=== PATIENT | female | born 1965 | race Caucasian/White ===

== ENCOUNTER 2020-06-28 15:09 | Inpatient (IN) | payer OTHER ==
[~2020-06-28] VITALS: Ht 172.7 cm; Wt 61.7 kg
[2020-06-28 15:11] VITALS: BP 116/81
[2020-06-28 15:36] LABS: ABSOLUTE BASOPHILS 0.1 thou/uL (0.0-0.2); ABSOLUTE LYMPHOCYTES 1.5 thou/uL (0.8-5.3); ABSOLUTE MONOCYTES 0.4 thou/uL (0.0-1.2); ABSOLUTE NEUTROPHILS 9.1 thou/uL (1.6-8.1); BASOPHILS 1.2 %; EOSINOPHILS 0.2 %; HEMATOCRIT 27.4 % (37.0-47.0); HEMOGLOBIN 9.6 gm/dL (12.0-15.0); LYMPHOCYTES 13.7 %; MCH 39.8 pg (26.0-34.0); MCHC 35.1 g/dL (28.0-37.0); MCV 113.5 fL (80.0-100.0); MONOCYTES 3.2 %; MPV 7.6 fl. (7.2-11.1); NUCLEATED RBCS 0 /100WBC; PLATELET COUNT* 369 thou/uL (150-400); POLYS 81.7 %; RBC 2.41 mil/uL (4.20-5.00); RDW-CV 15.3 % (10.5-14.5); WBC 11.2 thou/uL (4.0-11.0)
[2020-06-28 15:49] LABS: URINE BILIRUBIN NEGATIVE (Negative); URINE BLOOD 3+ (Negative); URINE CLARITY CLEAR; URINE COLOR YELLOW; URINE GLUCOSE-RANDOM NEGATIVE (Negative); URINE KETONES NEGATIVE (Negative); URINE NITRITE-REFLEX NEGATIVE (Negative); URINE PROTEIN NEGATIVE (Negative); URINE UROBILINOGEN 0.2 E.U./dl (0.2-1.0)
[2020-06-28 15:49] LABS: ANION GAP 6 mmol/L (7-16); BUN 3 mg/dL (7-18); CALCIUM 7.7 mg/dL (8.5-10.1); CHLORIDE 92 mmol/L (98-107); CO2 41 mmol/L (21-32); CREATININE 0.6 mg/dL (0.6-1.3); GLUCOSE 133 mg/dL (70-99); SODIUM 139 mmol/L (136-145)
[2020-06-28 15:51] LABS: URINE LEUKOCYTES-REFLEX 3+ (Negative)
[2020-06-28 15:54] LABS: POTASSIUM 1.8 mmol/L (3.5-5.1)
[2020-06-28 16:03] LABS: ALBUMIN 3.1 g/dL (3.4-5.0); ALKALINE PHOSPHATASE 116 U/L (46-116); LIPASE 41 U/L (73-393); SGOT 373 U/L (15-37); SGPT 65 U/L (30-65); TOTAL BILIRUBIN 0.7 mg/dL (<0.1-1.0); TOTAL PROTEIN 6.1 g/dL (6.4-8.2)
[2020-06-28 16:04] LABS: BACTERIA-REFLEX >30 Many /HPF (None Seen)
[2020-06-28 16:06] LABS: CASTS None Seen /LPF (None Seen); CRYSTALS None Seen /LPF (None Seen); MUCUS None Seen strn/LPF (None Seen); SQUAMOUS >10 Many /LPF (0-3); URINE RBC 3-10 Few /HPF (0-2)
[2020-06-28 16:51] LABS: ANISOCYTOSIS 1+; MACROCYTES 2+; PLATELET ESTIMATE ADEQUATE
[2020-06-28 20:54] VITALS: BP 119/68
[2020-06-28 21:00] VITALS: BP 123/68
[2020-06-29] VITALS: BP 129/71; BP 29/71
[2020-06-29] MEDS ORDERED: ACETAMINOPHEN500 MG PO (02:44)
[2020-06-29 04:00] VITALS: BP 132/75
--- NOTE | 2020-06-29 07:41 | NUR ---
RECIEVED REPORT FROM DIANA GARCIA. PT TRASNFERRED TO RM 229. PT A&OX4. VSS. MEDICAL ASSISTANT PRN IN PLACE. ADMISSION HISTORY & PHYSICAL ASSESSMENT COMPLETED AND CHARTED. PT ORIENTED TO ROOM & CALL LIGHT. PT RECHECKED POTASSIUM 1.7-ELECTROLYTE PROTOCOL IN PLACE. PLACED IN SPECIAL CONTACT PRECAUTION FOR PENDING CDIFF. CALL LIGHT WITHIN REACH.
[2020-06-29 08:00] VITALS: BP 142/79
[2020-06-29 08:23] LABS: MCH 39.1 pg (26.0-34.0); MCHC 34.6 g/dL (28.0-37.0); RBC 1.76 mil/uL (4.20-5.00); RDW-CV 15.3 % (10.5-14.5); WBC 8.1 thou/uL (4.0-11.0)
[2020-06-29 08:31] LABS: CALCIUM 6.2 mg/dL (8.5-10.1); CREATININE 0.5 mg/dL (0.6-1.3)
[2020-06-29 08:35] LABS: HEMOGLOBIN 6.9 gm/dL (12.0-15.0)
[2020-06-29 08:36] LABS: HEMATOCRIT 19.9 % (37.0-47.0)
[2020-06-29 08:45] LABS: ALBUMIN 2.1 g/dL (3.4-5.0); MAGNESIUM 1.1 mg/dL (1.8-2.4); POTASSIUM 1.9 mmol/L (3.5-5.1); TOTAL BILIRUBIN 0.7 mg/dL (<0.1-1.0); TOTAL PROTEIN 4.4 g/dL (6.4-8.2)
--- NOTE | 2020-06-29 09:18 | NUR ---
CM SPOKE TO THE PT TO DISCUSS CM ASSESSMENT. PT A&O. PT NORMALLY INDEPENDENT WITH ADL'S. PT INFORMS THAT SHE HAS BEEN VERY WEAK RECENTLY. PT RESIDES AT HOME WITH SON AND HE ASSIST HER NEEDED. PT INFORMS THAT SHE USES A WALKER FOR MOBILITY. PT HAS 0 HX OF HH. PT HAS HX OF SNF AT [place]. CM WILL REMAIN AVAILABLE TO ASSIST AND FOLLOW NEEDED.
--- NOTE | 2020-06-29 09:58 | EKG ---
[place] [address] ELECTROCARDIOGRAM REPORT Name: GELY HERNDON Room: [address] ADM IN [facility].#: [id number] Admission: 06/28/20 Attend Phys: James Nielsen, Discharge: Date of : 67 Date of Service: 06/28/20 1550 Report #: [id number] THIS REPORT FOR: //name// [facility] ED Test Date: 2020-06-28 Test Time: 15:50:58 Pat Name: GELY HERNDON Department: Room: [facility] Gender: F X Ray Developer: OSMAR : 1965 Requested By: Mateusz Bautista Order Number: [id number] MD: Gomez Jolley Measurements Intervals [place] Rate: 93 P: 0 OR: 166 QRS: 67 QRSD: 82 T: 252 QT: 399 QTc: 497 Interpretive Statements Sinus rhythm Borderline repolarization abnormality prolonged QT interval No previous ECG available for comparison Electronically Signed On 06-29-2020 9:58:08 MANAGER ROUTE by Gomez Jolley [email or web address] <ELECTRONICALLY SIGNED> By: Gomez Jolley MD, [facility] 06/29/20 0958 1550 1550 Gomez Jolley MD, [facility] /EPI
[2020-06-29 11:54] VITALS: BP 147/71
[2020-06-29 14:23] VITALS: BP 156/83; BP 157/82; BP 158/85; BP 182/93
[2020-06-29 18:49] LABS: HEMATOCRIT 31.9 % (37.0-47.0); HEMOGLOBIN 10.6 gm/dL (12.0-15.0)
[2020-06-29 18:52] LABS: MAGNESIUM 2.9 mg/dL (1.8-2.4)
[2020-06-29 20:00] VITALS: BP 159/76
--- NOTE | 2020-06-29 20:15 | NUR ---
ASSUMED CARE OF PATIENT THIS AM AT 0730. PATIENT IS ALERT ORIENTED X 4. SHE APPEARS VERY WEAK AND STIFF. PATIENT HAD A LOW POTASSIUM AND A HGB OF 6.9. AND A MAGNESIUM OF 1.1. IUNIT OF BLOOD GIVEN. E-LTTE REPLACEMENT GIVEN. LABS REDRAWN THIS EVENING AND POTASSIUM REMAINS LOW AT 2.0. SUGAR GRINDER NOTIFIED. PATIENT ASSISTED WITH ADLS THROUGHOUT THE DAY. SHE IS VOIDING PER BEDPAN. NO STOOLS NOTED TODAY. TELE SHOWS SR WITH 1DAVB AND PACS. WILL CONTINUE TO MONITOR VS AND LABS.
[2020-06-30] VITALS: BP 137/76
[2020-06-30 04:00] VITALS: BP 144/71
[2020-06-30 04:38] LABS: HEMATOCRIT 24.8 % (37.0-47.0); MCH 36.5 pg (26.0-34.0); MPV 7.1 fl. (7.2-11.1); RBC 2.31 mil/uL (4.20-5.00); WBC 11.1 thou/uL (4.0-11.0)
[2020-06-30 05:26] LABS: ALBUMIN 2.1 g/dL (3.4-5.0); CALCIUM 6.8 mg/dL (8.5-10.1); CREATININE 0.5 mg/dL (0.6-1.3); MAGNESIUM 2.1 mg/dL (1.8-2.4); TOTAL BILIRUBIN 0.6 mg/dL (<0.1-1.0); TOTAL PROTEIN 4.5 g/dL (6.4-8.2)
[2020-06-30 05:29] LABS: POTASSIUM 2.4 mmol/L (3.5-5.1)
[2020-06-30 05:49] LABS: HEMOGLOBIN 8.4 gm/dL (12.0-15.0); MCV 107.5 fL (80.0-100.0)
--- NOTE | 2020-06-30 06:31 | NUR ---
ASSUMED CARE OF PT AFTER REPORT AT 1930. PT A&OX4. VSS. PHYSICAL ASSESSMENT COMPLETED AND CHARTED. PT ON RA. PT TRACING SR ON TELE. PT TURNED TO SIDES. POTASSIUM STILL LOW- ELECTROLYTE PROTOCOL IN PLACE. MAINTAINED ON SPECIAL CONTACT PRECAUTION - PENDING CDIFF. CALL LIGHT WITHIN REACH.
[2020-06-30 11:57] VITALS: BP 151/90
--- NOTE | 2020-06-30 15:01 | NUR ---
CM INFORMED DURING PRIME ROUNDING OF THE PLAN OF CARE FOR THE PT. PT REMAINS ON IV ABT'S. CULTURES PENDING. PT MAY NEED HH AT D/C. CM WILL REMAIN AVAILABLE TO ASSIST AND FOLLOW NEEDED.
--- NOTE | 2020-06-30 15:02 | NUR ---
CM INFORMED DURING PRIME ROUNDING OF THE PLAN OF CARE FOR THE PT. PT/OT EVALS AND FOLLOW-UP. LABS PENDING. PT MAY NEED HH AT D/C. CM WILL REMAIN AVAILABLE TO ASSIST AND FOLLOW NEEDED.
[2020-06-30 17:10] VITALS: BP 164/103
--- NOTE | 2020-06-30 19:02 | NUR ---
I ASSUMED CARE OF THE PATIENT AT 0700. SHE IS ALERT AND ORIENTED X4 AND IS UP WITH ASSIST OF 2. BED IS IN THE LOW LOCKED POSITION AND CALL LIGHT IS IN REACH. HOURLY ROUNDING IS COMPLETED AND PATIENT NEEDS ARE MET. PAIN IS MANAGED WITH PRN MEDS. SHE WAS UP WITH THERAPY TO THE CHAIR AND STAYED UP FOR MEALS. PATIENT CALLS OUT FREQUENTLY AND FORGETS THAT SHE IS ENCOURAGED TO STAY STRONG BY USING HER STRENGTH. A STOOL SAMPLE WAS COLLECTED AND SENT AND ISOLATION IS MAINTAINED FOR SPECIAL CONTACT PRECAUTIONS. WILL CONTINUE TO MONITOR.
[2020-06-30 20:00] VITALS: BP 129/86
[2020-07-01] VITALS: BP 144/96; BP 97/59
[2020-07-01 04:00] VITALS: BP 135/89
[2020-07-01 04:12] LABS: HEMATOCRIT 27.8 % (37.0-47.0); HEMOGLOBIN 9.5 gm/dL (12.0-15.0); MCH 37.2 pg (26.0-34.0); MCHC 34.3 g/dL (28.0-37.0); MCV 108.5 fL (80.0-100.0); MPV 7.2 fl. (7.2-11.1); RBC 2.56 mil/uL (4.20-5.00); RDW-CV 20.4 % (10.5-14.5); WBC 12.6 thou/uL (4.0-11.0)
[2020-07-01 04:48] LABS: ANION GAP 5 mmol/L (7-16); BUN 1 mg/dL (7-18); CALCIUM 7.5 mg/dL (8.5-10.1); CHLORIDE 103 mmol/L (98-107); CO2 32 mmol/L (21-32); CREATININE 0.6 mg/dL (0.6-1.3); GLUCOSE 87 mg/dL (70-99); MAGNESIUM 1.9 mg/dL (1.8-2.4); POTASSIUM 3.6 mmol/L (3.5-5.1); SODIUM 140 mmol/L (136-145)
--- NOTE | 2020-07-01 06:46 | NUR ---
ASSUMED CARE OF PT AFTER REPORT AT 1930. PT A&OX4. VSS. PHYSICAL ASSESSMENT COMPLETED AND CHARTED. PT ON RA. PT TRACING SR/ST ON TELE. PT UP WITH 1 ASSIST TO RECLIINER/BSC. PT COMPLAINED OF GENERALIZED BODY PAIN-MED GIVEN PER MAR. MAINTAINED ON SPECIAL CONTACT PRECAUTION FOR CDIFF. FALL PRECAUTIONS IN PLACE. CALL LIGHT WITHIN REACH.
[2020-07-01 08:00] VITALS: BP 137/85
--- NOTE | 2020-07-01 10:41 | NUR ---
RECIEVED REPORT AROUND 729. ASSUMED CARE. HEART MONITOR ATTACHED AT ST. IV INTACT LEFT FOREARM. PT LYING IN BED. C.DIFF POSITIVE. ISOLATION PRECAUTIONS INTACT. MEDS GIVEN PER MAR. REPORTED GENERALIZED PAIN OF "6" OUT OF 10. CALL LIGHT WITHIN REACH. WILL CONTINUE TO MONITOTR.
[2020-07-01 16:49] VITALS: BP 133/92
[2020-07-01 19:08] LABS: ANA INTERPRETATION Negative (())
--- NOTE | 2020-07-01 19:43 | NUR ---
NO NEW CHANGES. MED/SURG STATUS. IV INTACT. PT IN CHAIR. ISOLATION PRECAUTIONS INTACT. MEDS GIVEN PER SEP. HOURLY ROUNDING PERFORMED. NO OTHER PAIN REPORTED THROUGHT OUT SHIFT. SON VISITED THIS SHIFT. CALL LIGHT WITHIN REACH. REPORT GIVEN TO LEGAL RESEARCHER. LEGAL RESEARCHER ASSUMED CARE.
[2020-07-01 20:00] VITALS: BP 117/77
--- NOTE | 2020-07-02 03:06 | NUR ---
ASSUMED CARE OF PATIENT AT 1930. PATIENT CONTINUES ON ISOLATION FOR C-DIFF. ASSESSMENT CHARTED. PATIENT DENIES PAIN HOWEVER STATES SHE ACHES ALL OVER. PATIENT DECLINED INTERVENTIONS.
[2020-07-02 04:54] LABS: CALCIUM 7.5 mg/dL (8.5-10.1); CREATININE 0.5 mg/dL (0.6-1.3); MAGNESIUM 1.8 mg/dL (1.8-2.4); POTASSIUM 3.3 mmol/L (3.5-5.1)
[2020-07-02 07:45] VITALS: BP 123/81
--- NOTE | 2020-07-02 09:18 | NUR ---
RECIEVED REPORT AROUND 0715. ASSUMED CARE. PT LYING IN BED THIS AM. GOT UP TO BSC TO VOID. THEN BACK PT BED. PT UP STAND BY ASSIST. PT STATED "NO" TO ANY PAIN. MEDS GIVEN PER SEP. MED/SURG STATUS. IV INTACT LEFT FOREARM 1/2 NS@50 RUNNING. CALL LIGHT WITHIN REACH. WILL CONTINUE TO MONITOR.
[2020-07-02 11:28] VITALS: BP 127/84
[2020-07-02 16:31] VITALS: BP 125/78
--- NOTE | 2020-07-02 18:58 | NUR ---
NO NEW CHANGES. PT LYING IN BED. MEDS GIVEN PER MAR. HOURLY ROUNDING PERFORMED. NO PAIN REPORTED. PT STATED "NO" ISOLATION PRECAUTIONS INTACT. IV INTACT. MED/SURG STATUS. CALL LIGHT WITHIN REACH. WILL CONTINUE TO MONITOR.
[2020-07-02 20:00] VITALS: BP 126/77
[2020-07-03] VITALS: BP 120/77
[2020-07-03 02:35] VITALS: BP 132/78
[2020-07-03 02:45] VITALS: BP 123/74
--- NOTE | 2020-07-03 04:16 | NUR ---
ASSUMED PT CARE AT APPROX 1930. PT IS AWAKE AND ORIENTED X4. PT IS NOT IN RESPIRATORY DISTRESS, NO DESATURATIONS NOTED ON ROOM AIR. NO COMPLAINTS OF PAIN AT THIS TIME. ZOFRAN GIVEN PER SEP FOR NAUSEA, WITH RELIEF. NO OTHER CHANGES THIS SHIFT. CALL LIGHT WITHIN REACH. HOURLY ROUNDING DONE FOR PT SAFETY. CALL LIGHT WITHIN REACH. HIGH FALL PRECAUTIONS IN PLACE.
[2020-07-03 08:00] VITALS: BP 113/66
[2020-07-03 11:00] VITALS: BP 113/66
[2020-07-03 14:32] LABS: ABSOLUTE EOSINOPHILS 0.1 thou/uL (0.0-0.7); ABSOLUTE LYMPHOCYTES 1.9 thou/uL (0.8-5.3); ABSOLUTE MONOCYTES 0.5 thou/uL (0.0-1.2); ABSOLUTE NEUTROPHILS 5.9 thou/uL (1.6-8.1); BASOPHILS 0.2 %; EOSINOPHILS 0.9 %; HEMATOCRIT 28.2 % (37.0-47.0); HEMOGLOBIN 9.4 gm/dL (12.0-15.0); LYMPHOCYTES 22.7 %; MCH 37.1 pg (26.0-34.0); MCHC 33.4 g/dL (28.0-37.0); MCV 111.1 fL (80.0-100.0); MONOCYTES 5.9 %; MPV 7.1 fl. (7.2-11.1); NUCLEATED RBCS 0 /100WBC; PLATELET COUNT* 453 thou/uL (150-400); POLYS 70.3 %; RBC 2.54 mil/uL (4.20-5.00); RDW-CV 20.1 % (10.5-14.5); WBC 8.5 thou/uL (4.0-11.0)
[2020-07-03 14:57] LABS: MACROCYTES 2+; PLATELET ESTIMATE INCREASED
[2020-07-03 14:58] LABS: ANISOCYTOSIS 2+
[2020-07-03 15:03] LABS: ALBUMIN 2.3 g/dL (3.4-5.0); CALCIUM 7.5 mg/dL (8.5-10.1); CREATININE 0.6 mg/dL (0.6-1.3); MAGNESIUM 1.8 mg/dL (1.8-2.4); POTASSIUM 3.7 mmol/L (3.5-5.1); TOTAL BILIRUBIN 0.2 mg/dL (<0.1-1.0); TOTAL PROTEIN 5.4 g/dL (6.4-8.2)
[2020-07-03] MEDS ORDERED: VANCOMYCIN HCL125 MG PO (15:36)
[2020-07-03] MEDS ORDERED: VITAMIN D325 MCG PO (15:36)
[2020-07-03 16:14] VITALS: BP 113/66
--- NOTE | 2020-07-03 18:52 | NUR ---
RECEIVED REPORT. ASSUMED CARE OF PT AROUND 0730. PT A&O X4. AM ASSESSMENT AND VITALS COMPLETED CHARTED. MEDS PER EMAR. SON AT BEDSIDE THIS AFTERNOON. ISOLATION MAINTAINED. PT UP TO BEDSIDE COMMODE AD ELENA TO VOID - MUCH STRONGER TODAY, NO LONGER A FALL RISK. DENIED DIZZINESS. PT WITH SEVERAL STOOLS THIS SHIFT, STARTING TO FORM UP SOME NOW. DC ORDERS RECEIVED. PT AWARE TO CENTER DIRECTOR LEAD TEACHER MEDS FROM PHARMACY. PT AWARE OF FOLLOW UP APPOINTMENTS NEEDED. IV REMOVED. ALL BELONGINGS GATHERED AND READY TO LEAVE WITH THE PT. PT FINISHING BAG OV IV MAG AND THEN WILL BE READY TO GO. SON WILL BE HERE AROUND 1900. PT CURRENTLY RESTING IN BED. LOW FALL RISK PRECAUTIONS IN PLACE. CALL LIGHT IS WITHIN REACH. HOURLY ROUNDING PERFORMED.
== END 2020-07-03 19:35 | disposition home or self-care (01) | DRG 372 ==
LOC: M.ERS 15:09 → M.2W 16:40 → M.TBA-ER 16:40 → M.2W 21:00
PROVIDERS: Family Medicine; Internal Medicine; ADMIT Internal Medicine; ATTEND Internal Medicine
PROC: 30233N1 Transfusion of Nonautologous Red Blood Cells into Peripheral Vein, Percutaneous Approach (ICD-10-PCS; principal; 2020-06-29)
DX: A04.71 Enterocolitis due to Clostridium difficile, recurrent (principal); E44.0 Moderate protein-calorie malnutrition; M62.82 Rhabdomyolysis; E87.6 Hypokalemia; N30.91 Cystitis, unspecified with hematuria; D64.9 Anemia, unspecified; E53.8 Deficiency of other specified B group vitamins; F17.210 Nicotine dependence, cigarettes, uncomplicated; F44.4 Conversion disorder with motor symptom or deficit; M35.3 Polymyalgia rheumatica; E83.119 Hemochromatosis, unspecified; E83.42 Hypomagnesemia; E86.0 Dehydration; Z20.828 Contact with and (suspected) exposure to other viral communicable diseases; Z68.20 Body mass index [BMI] 20.0-20.9, adult; Z90.710 Acquired absence of both cervix and uterus

== ENCOUNTER 2020-07-31 14:41 | Emergency (ER) | payer OTHER ==
[~2020-07-31] VITALS: Ht 160 cm; Wt 59.0 kg
--- NOTE | ~2020-07-31 | EMS ---
[place] [address] EMS Patient Care Report Name: GELY HERNDON [id number] Admission: 07/31/20 Attend Phys: Discharge: 07/31/20 Date of : 67 Report #: [id number] THIS REPORT FOR: //name// Report Transmitted: 08/01/2020 12:15 EMS Care Summary [facility] Incident [id number] @ 07/31/2020 13:33 Incident Location [facility] [place] [address] Patient GELY HERNDON Female, 54 Years 1965 Patient Address [address] [place] [address] Patient History None Reported, Patient Allergies No known allergies, Patient Medications Ibuprofen, Tylenol, Bentyl, Vancomycin, Chief Complaint Seizure Disposition Transported No Lights/[place] Dispatch Reason Convulsions/Seizure Transported To [facility] Narrative Dispatch: [facility] was dispatched for a female patient who experienced a Seizure. Patient is currently asleep and breathing in her chair. Med 1 copied tones and went en route emergent. [place] [id number] EMS Patient Care Report Name: GELY HERNDON Room: [facility]#: [id number] Admission: 07/31/20 Attend Phys: Discharge: 07/31/20 Date of : 67 Report #: [id number] Chief Complaint: Med 1 arrived on scene to find the patient slumped over in her chair. Patient is alert to painful and verbal stimuli. Patient does not appear to be in any distress or discomfort. Patient is uncooperative while attempting to assess GCS. Patient's son states she has "drank alcohol" and "took her pills." History of present illness/PERLA: Patient's son states she has a history of seizures, but then states that she does not. The son states "her arms were shaking and her legs for an unknown time." Patient was sitting in her living room chair when her son witnessed the seizure. Assessment: Airway: Clear, patent, and self maintained. Breathing: Clear, and equal bilaterally. Non labored. Circulation: Skin is pink, warm, and dry. Strong radial pulses. Disability: A&OX4, GCS 15. Exposures: No life threats were found. See "assessments" tab for further. Reason for ambulance: Patient is experiencing a seizure, requesting EMS treatment and transport. Treatments: ALS assessment. 12 lead EKG showing sinus tachycardia. 20G IV attempt, unsuccessful. Vitals monitored throughout transport. See "flowchart" for further. Summary: With the assistance of EMS, the patient was placed onto the cot, secured in place, and placed into the ambulance for transport. A 12 lead EKG was performed. Med 1 went en route non emergent to [place]. A 20G IV was attempted, but unsuccessful. The patient's overall condition remained the same throughout transport. Radio report was given and no further questions or orders were received. Med 1 arrived at destination and the patient was taken to room 4 in the ED. The patient was sheet transferred onto the bed. Report was given and signatures and paperwork were received. Med 1 returned back in service. Initial Vitals @14:17P: 102,BP: 126/77,[place] Suspected: false @14:29P: 99,SpO2: 100, @14:24P: 107,SpO2: 100,[place] Suspected: false @14:13P: 102,[place] Suspected: false @14:34P: 105,SpO2: 100, @14:04BP: 128/77,SpO2: 97,[place] Suspected: false @14:22R: 18,GCS: 14,Glucose: 123, @14:39P: 106,BP: 95/76,[place] Suspected: [place] [address] EMS Patient Care Report Name: KATRINAGELY Room: [facility]#: [id number] Admission: 07/31/20 Attend Phys: Discharge: 07/31/20 Date of : 67 Report #: [id number] @13:55MENTAL:Person Oriented,SKIN:HEENT:LUNG SOUNDS:ABDOMEN:PELVIS//GI:EXTREMITIES:Capillary Refill: Right Upper: < 2 Sec,PULSE:Radial: 2+ Normal,NEURO:@14:06MENTAL:Person Oriented,SKIN:HEENT:LUNG SOUNDS:ABDOMEN:PELVIS//GI:EXTREMITIES:Capillary Refill: Right Upper: < 2 Sec,PULSE:Radial: 2+ Normal,NEURO: Impression Seizures Procedures @14:12ALS AssessmentResponse: UnchangedSucceeded@14:32Saline Lock 0cc (20 ga) Site: Hand-RightResponse: UnchangedFailed@14:1312-Lead ECGResponse: UnchangedSucceeded@14:1712-Lead ECGResponse: UnchangedSucceeded Timeline 13:33,Call Received 13:33,Dispatched 13:34,En Route 13:53,On Scene 13:54,At Patient 14:04,BP: 128/77 M,PULSE: ,RR: R,SPO2: 97 Ox,ETCO2: ,BG: ,PAIN: ,GCS: , 14:04,Depart Scene 14:12,ALS Assessment,Response: UnchangedSucceeded, 14:13,12-Lead ECG,Response: UnchangedSucceeded, 14:13,BP: / M,PULSE: 102,RR: R,SPO2: Ox,ETCO2: ,BG: ,PAIN: ,GCS: , 14:17,12-Lead ECG,Response: UnchangedSucceeded, 14:17,BP: 126/77 M,PULSE: 102,RR: R,SPO2: Ox,ETCO2: ,BG: ,PAIN: ,GCS: , 14:22,BP: / M,PULSE: ,RR: 18 R,SPO2: Ox,ETCO2: ,B,PAIN: ,GCS: 14, 14:24,BP: / M,PULSE: 107,RR: R,SPO2: 100 Ox,ETCO2: ,BG: ,PAIN: ,GCS: , 14:29,BP: / M,PULSE: 99,RR: R,SPO2: 100 Ox,ETCO2: ,BG: ,PAIN: ,GCS: , 14:32,Saline Lock 0cc 20 ga Site: Hand-Right,Response: UnchangedFailed, 14:34,BP: / M,PULSE: 105,RR: R,SPO2: 100 Ox,ETCO2: ,BG: ,PAIN: ,GCS: , 14:38,At Destination 14:39,BP: 95/76 M,PULSE: 106,RR: R,SPO2: Ox,ETCO2: ,BG: ,PAIN: ,GCS: , 15:20,Call Closed Disclaimer v1.1 Copyright 2020 [employer] This EMS Care Summary contains data elements from the applicable legal record (which may be displayed differently). It is designed to provide pertinent information for the following purposes: continuity of care, clinical quality, and state data reporting. The complete legal record is available to ED staff and administrators of the receiving hospital in ES's Patient Tracker. All data is provided "as is."
[~2020-07-31 14:41] MED LIST: ACETAMINOPHEN500 MG PO; VANCOMYCIN HCL125 MG PO; VITAMIN D325 MCG PO
[2020-07-31 14:50] VITALS: BP 137/73
[2020-07-31 15:15] LABS: ABSOLUTE LYMPHOCYTES 0.8 thou/uL (0.8-5.3); ABSOLUTE MONOCYTES 0.5 thou/uL (0.0-1.2); ABSOLUTE NEUTROPHILS 3.9 thou/uL (1.6-8.1); BASOPHILS 0.2 %; HEMATOCRIT 31.5 % (37.0-47.0); HEMOGLOBIN 11.2 gm/dL (12.0-15.0); LYMPHOCYTES 16.2 %; MCHC 35.6 g/dL (28.0-37.0); MCV 98.5 fL (80.0-100.0); MONOCYTES 8.9 %; MPV 9.6 fl. (7.2-11.1); NUCLEATED RBCS 0 /100WBC; PLATELET COUNT* 52 thou/uL (150-400); POLYS 74.7 %; RDW-CV 18.6 % (10.5-14.5); WBC 5.2 thou/uL (4.0-11.0)
[2020-07-31 15:20] LABS: CALCIUM 7.8 mg/dL (8.5-10.1); CREATININE 0.8 mg/dL (0.6-1.3)
[2020-07-31 15:21] LABS: POTASSIUM 2.2 mmol/L (3.5-5.1)
[2020-07-31 15:24] LABS: ALBUMIN 3.1 g/dL (3.4-5.0); TOTAL BILIRUBIN 0.5 mg/dL (<0.1-1.0); TOTAL PROTEIN 6.4 g/dL (6.4-8.2)
[2020-07-31 15:46] LABS: AMP/METHAMP Negative (Negative); BARBITURATES Negative (Negative); BENZODIAZEPINES Negative (Negative); COCAINE Negative (Negative); METHADONE Negative (Negative); OPIATES Negative (Negative); PCP Negative (Negative); THC Negative (Negative)
[2020-07-31 16:20] LABS: URINE BILIRUBIN NEGATIVE (Negative); URINE BLOOD TRACE (Negative); URINE COLOR YELLOW; URINE GLUCOSE-RANDOM NEGATIVE (Negative); URINE KETONES NEGATIVE (Negative); URINE NITRITE-REFLEX NEGATIVE (Negative); URINE PROTEIN NEGATIVE (Negative); URINE SPECIFIC GRAVITY <= 1.005 (1.005-1.030); URINE UROBILINOGEN 0.2 E.U./dl (0.2-1.0)
[2020-07-31 16:21] LABS: URINE CLARITY HAZY; URINE LEUKOCYTES-REFLEX 2+ (Negative)
[2020-07-31 16:27] LABS: SQUAMOUS 0-3 Few /LPF (0-3)
[2020-07-31 16:28] LABS: INR 1.1; PROTIME 11.8 Seconds (9.20-11.50)
[2020-07-31 16:28] LABS: BACTERIA-REFLEX >30 Many /HPF (None Seen); CASTS None Seen /LPF (None Seen); CRYSTALS None Seen /LPF (None Seen); URINE RBC 0-2 Rare /HPF (0-2); URINE WBC-REFLEX 6-15 Few /HPF (0-5)
[2020-07-31 18:42] LABS: BE 6.8 mmol/L (-2 to +3); PCO2 33.8 mmHg (35.0-45.0); pH 7.555 (7.340-7.450)
[2020-07-31 18:46] LABS: PO2 141.8 mmHg (75.0-100.0)
[2020-07-31 18:51] LABS: CSF GLUCOSE 60 mg/dl (40-70); CSF PROTEIN 33.7 mg/dl (15-45)
[2020-07-31 19:14] LABS: CSF CLARITY CLEAR; CSF COLOR COLORLESS; CSF RBC 0 /mm3; CSF WBC 0 /mm3 (0-10); VOLUME 8 ml
[2020-07-31 19:28] LABS: CALCIUM 8.5 mg/dL (8.5-10.1); CREATININE 0.7 mg/dL (0.6-1.3)
[2020-07-31 19:29] LABS: POTASSIUM 1.8 mmol/L (3.5-5.1)
[2020-07-31 19:57] VITALS: BP 143/94
--- NOTE | 2020-08-01 10:13 | EKG ---
[place] [address] ELECTROCARDIOGRAM REPORT Name: GELY HERNDON Room: [facility]#: [id number] Admission: 07/31/20 Attend Phys: Discharge: 07/31/20 Date of : 67 Date of Service: 07/31/20 1608 Report #: [id number] THIS REPORT FOR: //name// [facility] ED Test Date: 2020-07-31 Test Time: 16:08:43 Pat Name: GELY HERNDON Department: Room: [facility] Gender: F Internet Marketing Intern: : 1965 Requested By: Richard Galvez Order Number: [id number] MD: Yang Powell Measurements Intervals [place] Rate: 101 P: -47 VA: 175 QRS: 70 QRSD: 122 T: 124 QT: 470 QTc: 610 Interpretive Statements Sinus rhythm Nonspecific intraventricular conduction delay QT prolongation Nonspecific repol abnormality, diffuse leads Compared to ECG 06/28/2020 15:50:58 Intraventricular conduction delay now present Electronically Signed On 08-01-2020 10:13:09 TURNTABLE WORKER by Yang Powell [email or web address] <ELECTRONICALLY SIGNED> By: Yang Powell MD, [facility] 08/01/20 1013 1608 1608 Yang Powell MD, [facility] /EPI
== END 2020-07-31 19:58 | disposition short-term general hospital (02) ==
LOC: M.ERS 14:41 → M.TBA-ER 16:17 → M.ERS 16:17
PROVIDERS: Emergency Medicine; Internal Medicine
DX: G93.40 Encephalopathy, unspecified (principal); E87.6 Hypokalemia; Z90.710 Acquired absence of both cervix and uterus; Z79.2 Long term (current) use of antibiotics; Z79.899 Other long term (current) drug therapy; Z20.828 Contact with and (suspected) exposure to other viral communicable diseases

== ENCOUNTER 2021-02-15 16:05 | Inpatient (IN) | payer OTHER ==
[~2021-02-15] VITALS: Ht 170.2 cm; Wt 50.5 kg
--- NOTE | ~2021-02-15 | CON ---
[address] [address] CONSULTATION Name: KATRINAGELY Room: [address] IN M.R.#: [id number] Admission: 02/15/21 Attend Phys: Shiraz Russ MD Discharge: Date of : 67 Report #: [id number] THIS REPORT FOR: cc: Cl Street Ahmad W. DO Khosla, Parveen K. MD ~ DATE OF CONSULTATION: 03/13/2021 HISTORY OF PRESENT ILLNESS: This is a 55-year-old female patient who is extremely complicated. She has a large record in the computer and I talked to the nurse looking after this patient. There is a friend here in the room. She is unable to provide any history at all. Records indicate that she came with profound hypotension. It was presumed that she had a septic shock, but I reviewed the notes from ID and they are not sure about that diagnosis and therefore so far that shock has been unexplained. The record also indicate that this patient has a history of multiple C. difficile infection. History also indicate that when she came in, she provided a history she was drinking alcohol. According to the nurse, she is becoming better, but she is still not where it was before. I called Dr. Palm and discussed the patient with him. The patient is presently on BiPAP. I am not able to talk to her, but she does follow commands. When she came in, she was admitted with a fall and that was attributed to her hypotension. She was having some compression fractures, both in thoracic and lumbar area, which was a few months old. They were unchanged from the last CT scan. She also has a problem with alcohol. She has a liver abnormality. She just has numerous medical issues. PAST MEDICAL HISTORY: Positive for C. difficile infection. FAMILY HISTORY: Unremarkable. SOCIAL HISTORY: She does have a history of drinking alcohol. PHYSICAL EXAMINATION: Limited. She was able to open her eyes and she followed commands sometime. She moved upper extremity. To some extent, she moved lower extremity also. I cannot tell about the plantar. The movement in the lower extremity was pretty minimum and it was about 1-2/5; where in the upper extremities she has 3/5. She was much weaker on the left leg than the right leg. She did dorsiflexion and plantar flexion, but with great difficulty. I tried to do the position sense. The rest of the examination, I could not carry out. I could not elicit any reflexes in the lower extremities. She did not understand the instruction for cerebellar sign. There does not appear to be meningeal sign and of note is that this patient had a spinal tap and that was mostly unremarkable. LABORATORY DATA: She did have a CT scan of the head on admission, [place] [address] CONSULTATION Name: KATRINAGELY Room: [address] IN [facility]#: [id number] Admission: 02/15/21 Attend Phys: Shiraz Russ MD Discharge: Date of : 67 Report #: [id number] not show any acute abnormality. IMPRESSION: 1. A complicated case, which most likely occurred because of hypoperfusion secondary to hypotension as well as metabolic encephalopathy caused by numerous other problems. 2. 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 3. I cannot exclude the possibility of spine problem and I am not sure how to do the testing in this patient to even do that. RECOMMENDATIONS: I discussed with Dr. Palm. We will go ahead and do a CT on her, but she may need an MRI of the brain and even spine whenever she is able to cooperate with that, especially one of the notes indicate that she does have a history of atrial fibrillation. I will suggest giving her thiamine and I am going to give her IV today. I spent more than 50 minutes of time taking care of this patient today and that included reviewing her imaging study as well as extensive record and coordinating her care. Thank you very much for this referral. By: 1433 2105Milo Currie MD /isela
--- NOTE | ~2021-02-15 | PROC ---
[address] [address] PROCEDURE REPORT Name: GELY HERNDON Room: [address] ADM IN M.R.#: [id number] Admission: 02/15/21 Attend Phys: Shiraz Russ MD Discharge: Date of : 67 Report #: [id number] THIS REPORT FOR: cc: Cl Street Ahmad W. DO [facility],Medical Records Staff ~ For GI report, please see the Provation report in Perceptive 7 content. By: 1333Medical Records Staff SEBAS /ROBERTO
[2021-02-15 16:15] VITALS: BP 74/59
[2021-02-15 17:43] LABS: HEMATOCRIT 29.2 % (37.0-47.0); HEMOGLOBIN 10.3 gm/dL (12.0-15.0); MCH 36.9 pg (26.0-34.0); MCHC 35.4 g/dL (28.0-37.0); MCV 104.3 fL (80.0-100.0); MPV 8.9 fl. (7.2-11.1); NUCLEATED RBCS 0 /100WBC; PLATELET COUNT* 163 thou/uL (150-400); WBC 6.8 thou/uL (4.0-11.0)
[2021-02-15 17:48] LABS: CALCIUM 6.8 mg/dL (8.5-10.1); CREATININE 1.2 mg/dL (0.6-1.3)
[2021-02-15 17:50] LABS: POTASSIUM 2.6 mmol/L (3.5-5.1)
[2021-02-15 18:03] LABS: ALBUMIN 1.3 g/dL (3.4-5.0); TOTAL BILIRUBIN 2.1 mg/dL (<0.1-1.0); TOTAL PROTEIN 5.2 g/dL (6.4-8.2)
[2021-02-15 18:25] LABS: ABSOLUTE EOSINOPHILS 0.1 thou/uL (0.0-0.7); ABSOLUTE LYMPHOCYTES 1.7 thou/uL (0.8-5.3); ABSOLUTE MONOCYTES 0.3 thou/uL (0.0-1.2); ABSOLUTE NEUTROPHILS 4.7 thou/uL (1.6-8.1)
[2021-02-15 18:26] LABS: ANISOCYTOSIS 1+
[2021-02-15 18:27] LABS: MACROCYTES Occasional; PLATELET ESTIMATE ADEQUATE
[2021-02-15 21:13] LABS: BE 20.7 mmol/L (-2 to +3); PCO2 VENOUS 42.6 mmHg (41.0-51.0); PO2 VENOUS 138.6 mmHg (35.0-45.0)
[2021-02-15 21:25] LABS: ANION GAP < 0 mmol/L (7-16); BUN 6 mg/dL (7-18); CALCIUM 6.3 mg/dL (8.5-10.1); CHLORIDE 84 mmol/L (98-107); CO2 42 mmol/L (21-32); CREATININE 0.9 mg/dL (0.6-1.3); GLUCOSE 65 mg/dL (70-99); SODIUM 125 mmol/L (136-145)
[2021-02-15 21:27] LABS: POTASSIUM 1.6 mmol/L (3.5-5.1)
[2021-02-15 22:00] VITALS: BP 92/58
[2021-02-16] VITALS (24 sets, daily range): BP systolic 82–166; BP diastolic 35–146
[2021-02-16 04:00] LABS: ABSOLUTE BASOPHILS 0.1 thou/uL (0.0-0.2); ABSOLUTE EOSINOPHILS 0.1 thou/uL (0.0-0.7); ABSOLUTE LYMPHOCYTES 2.3 thou/uL (0.8-5.3); ABSOLUTE MONOCYTES 0.2 thou/uL (0.0-1.2); ABSOLUTE NEUTROPHILS 3.2 thou/uL (1.6-8.1); BASOPHILS 1.1 %; EOSINOPHILS 2.5 %; HEMATOCRIT 21.8 % (37.0-47.0); LYMPHOCYTES 39.1 %; MCH 36.8 pg (26.0-34.0); MCHC 35.4 g/dL (28.0-37.0); MCV 103.8 fL (80.0-100.0); MONOCYTES 4.1 %; MPV 7.8 fl. (7.2-11.1); NUCLEATED RBCS 0 /100WBC; PLATELET COUNT* 166 thou/uL (150-400); POLYS 53.2 %
[2021-02-16 04:33] LABS: PREALBUMIN 7.5 mg/dL (18.0-35.7)
[2021-02-16 05:12] LABS: HEMOGLOBIN 7.7 gm/dL (12.0-15.0)
[2021-02-16 06:11] LABS: ALBUMIN 1.5 g/dL (3.4-5.0); CREATININE 0.8 mg/dL (0.6-1.3); TOTAL PROTEIN 4.1 g/dL (6.4-8.2)
[2021-02-16 06:13] LABS: POTASSIUM 1.6 mmol/L (3.5-5.1)
[2021-02-16 10:20] LABS: URINE BILIRUBIN NEGATIVE (Negative); URINE BLOOD NEGATIVE (Negative); URINE CLARITY CLEAR; URINE COLOR YELLOW; URINE GLUCOSE-RANDOM NEGATIVE (Negative); URINE KETONES NEGATIVE (Negative); URINE LEUKOCYTES-REFLEX TRACE (Negative); URINE NITRITE-REFLEX NEGATIVE (Negative); URINE PROTEIN NEGATIVE (Negative); URINE SPECIFIC GRAVITY <= 1.005 (1.005-1.030)
[2021-02-16 10:28] LABS: AMP/METHAMP Negative (Negative); BACTERIA-REFLEX 1-9 Few /HPF (None Seen); BARBITURATES Negative (Negative); BENZODIAZEPINES Negative (Negative); CASTS None Seen /LPF (None Seen); COCAINE Negative (Negative); CRYSTALS None Seen /LPF (None Seen); METHADONE Negative (Negative); MUCUS None Seen strn/LPF (None Seen); OPIATES Negative (Negative); PCP Negative (Negative); SQUAMOUS 4-10 Moderate /LPF (0-3); THC Negative (Negative); URINE RBC 3-10 Few /HPF (0-2); URINE WBC-REFLEX 0-5 Rare /HPF (0-5)
--- NOTE | 2021-02-16 12:58 | EKG ---
[place] [address] ELECTROCARDIOGRAM REPORT Name: GELY HERNDON Room: [place] [address] ADM IN [facility]#: [id number] Admission: 02/15/21 Attend Phys: Shiraz Russ, Discharge: Date of : 67 Date of Service: 02/15/21 1708 Report #: [id number] THIS REPORT FOR: //name// [facility] ED Test Date: 2021-02-15 Test Time: 17:08:25 Pat Name: GELY HERNDON Department: Room: [facility] Gender: F Rehabilitation Assistant: TDS : 1965 Requested By: Chu Mcknight Order Number: [id number] MD: Yang Powell Measurements Intervals [place] Rate: 94 P: 0 LA: 51 QRS: 73 QRSD: 86 T: 231 QT: 433 QTc: 542 Interpretive Statements Sinus rhythm Low voltage, precordial leads Abnormal T, consider ischemia, diffuse leads Prolonged QT interval Compared to ECG 07/31/2020 16:08:43 Low QRS voltage now present Possible ischemia persists Prolonged QT interval persists Intraventricular conduction delay no longer present Early repolarization no longer present Electronically Signed On 02-16-2021 12:58:21 CDT by Yang Powell [email or web address] <ELECTRONICALLY SIGNED> By: Yang Powell MD, [facility] 02/16/21 1258 07 07 Yang Powell MD, [facility] /EPI
--- NOTE | 2021-02-16 14:19 | NUR ---
discussed the consult for kypho with Dr. Adams and she wanted to get MRI. Now discussed with RN that is taking care of patient and have a little more information regardng patient stability. Patient also has possible UTI and is metabolically unstable as she has had large amounts of stool multiple times a day. Patient would need to get better clinically prior to MRI and even addressing the proposed kyphoplasty.
--- NOTE | 2021-02-16 16:17 | NUR ---
RECTAL TUBE PLACED ON PT, 45 ML WASTER INFLATED INTO BALLOON. PT TOLERATED PROCEDURE WELL. LESLIE CARE DONE WITH BARRIER CREAM APPLIED
[2021-02-16 16:58] LABS: ABSOLUTE BASOPHILS 0.1 thou/uL (0.0-0.2); ABSOLUTE EOSINOPHILS 0.1 thou/uL (0.0-0.7); ABSOLUTE LYMPHOCYTES 1.8 thou/uL (0.8-5.3); ABSOLUTE MONOCYTES 0.3 thou/uL (0.0-1.2); ABSOLUTE NEUTROPHILS 3.5 thou/uL (1.6-8.1); EOSINOPHILS 1.7 %; HEMATOCRIT 22.4 % (37.0-47.0); HEMOGLOBIN 7.7 gm/dL (12.0-15.0); LYMPHOCYTES 31.7 %; MCH 35.9 pg (26.0-34.0); MCHC 34.3 g/dL (28.0-37.0); MCV 104.6 fL (80.0-100.0); MONOCYTES 4.8 %; MPV 7.9 fl. (7.2-11.1); NUCLEATED RBCS 0 /100WBC; PLATELET COUNT* 182 thou/uL (150-400); POLYS 60.8 %; RBC 2.14 mil/uL (4.20-5.00); RDW-CV 15.7 % (10.5-14.5); WBC 5.7 thou/uL (4.0-11.0)
[2021-02-16 17:04] LABS: CALCIUM 6.4 mg/dL (8.5-10.1); CREATININE 0.8 mg/dL (0.6-1.3); MAGNESIUM 1.6 mg/dL (1.8-2.4)
[2021-02-17] VITALS (47 sets, daily range): BP systolic 79–121; BP diastolic 52–89
[2021-02-17 04:46] LABS: ABSOLUTE EOSINOPHILS 0.2 thou/uL (0.0-0.7); ABSOLUTE LYMPHOCYTES 2.4 thou/uL (0.8-5.3); ABSOLUTE MONOCYTES 0.4 thou/uL (0.0-1.2); ABSOLUTE NEUTROPHILS 4.3 thou/uL (1.6-8.1); BASOPHILS 0.6 %; EOSINOPHILS 2.5 %; HEMATOCRIT 22.3 % (37.0-47.0); HEMOGLOBIN 7.7 gm/dL (12.0-15.0); LYMPHOCYTES 33.1 %; MCH 36.4 pg (26.0-34.0); MCHC 34.5 g/dL (28.0-37.0); MCV 105.5 fL (80.0-100.0); MONOCYTES 5.1 %; MPV 7.6 fl. (7.2-11.1); NUCLEATED RBCS 0 /100WBC; PLATELET COUNT* 193 thou/uL (150-400); POLYS 58.7 %; RBC 2.11 mil/uL (4.20-5.00); RDW-CV 16.5 % (10.5-14.5); WBC 7.3 thou/uL (4.0-11.0)
[2021-02-17 05:15] LABS: INR 1.5; PROTIME 15.6 Seconds (9.20-11.50)
[2021-02-17 05:18] LABS: PREALBUMIN 7.5 mg/dL (18.0-35.7)
--- NOTE | 2021-02-17 05:24 | NUR ---
PT RESTLESS, ANXIOUS AND IMPULSIVE DURING NIGHT. PT DISROBING AND PULLING OFF MONITORING EQUIPMENT. PT'S CIWA SCORE > 12, IV ATIVAN GIVEN X2 DURING SHIFT.
[2021-02-17 05:31] LABS: ALBUMIN 1.9 g/dL (3.4-5.0); CALCIUM 6.4 mg/dL (8.5-10.1); CREATININE 0.7 mg/dL (0.6-1.3); MAGNESIUM 1.8 mg/dL (1.8-2.4); TOTAL PROTEIN 4.5 g/dL (6.4-8.2)
[2021-02-17 05:40] LABS: POTASSIUM 2.8 mmol/L (3.5-5.1)
[2021-02-17 06:22] LABS: ESR (SEDRATE) 3 mm/hr (0-30)
--- NOTE | 2021-02-17 11:37 | 2DMMODE ---
[place] [address] 2 D/M-MODE ECHOCARDIOGRAM Name: KATRINAGELY Room: [address] IN .R.#: [id number] Admission: 02/15/21 Attend Phys: Shiraz Russ, Discharge: Date of : 67 Date of Service: 02/17/21 1137 Report #: [id number] THIS REPORT FOR: cc: Cl Street,Cl Estrella,Yang Asencio MD [facility] ~ APPROVED REPORT Study performed: 02/17/2021 09:10:38 EXAM: Limited 2D and color flow Echocardiogram BSA: 1.60 HR: 100 bpm BP: 86/61 mmHg Other Information Study Quality: Technically Difficult Technically limited study due to uncooperative patient, inability to position patient. Indications Shock and Fall 2D Dimensions IVSd: 13.12 (7-11mm) LVOT Diam: 18.32 (18-24mm) LVDd: 38.27 mm PWd: 10.50 (7-11mm) Ascending Ao: 31.11 (22-36mm) LVDs: 26.83 (25-40mm) Aortic Root: 22.53 mm Left Ventricle The left ventricle is normal size. There is normal LV segmental wall motion. There is normal left ventricular wall thickness. Left ventricular systolic function is hyperdynamic. LVEF is 65-70%. Aortic Valve Mild aortic valve sclerosis. Mitral Valve The mitral valve is normal in structure. Trace mitral [place] [address] 2 D/M-MODE ECHOCARDIOGRAM Name: GELY HERNDON Room: [address] IN ..#: [id number] Admission: 02/15/21 Attend Phys: Shiraz Russ, Discharge: Date of : 67 Date of Service: 02/17/21 1137 Report #: [id number] Great Vessels The aortic root is normal in size. Pericardium There is no pericardial effusion. Pleural effusion noted. <Conclusion> The left ventricle is normal size. There is normal left ventricular wall thickness. Left ventricular systolic function is hyperdynamic. Mild aortic valve sclerosis. Mitral valve is structurally normal Trace mitral regurgitation. There is no pericardial effusion. There is normal LV segmental wall motion. LVEF is 65-70%. <ELECTRONICALLY SIGNED> By: Yang Powell MD, [facility] 02/17/21 1137 1137 1137 Yang Powell MD, [facility] /INF
--- NOTE | 2021-02-17 12:12 | NUR ---
barriers to d/c: pt has septic shock, etoh withdrawls. pressors. malnutrition. albumin is low.
[2021-02-17 13:54] LABS: BF RBC 1105 /mm3; TOTAL CELL COUNT 41 /mm3
[2021-02-17 14:03] LABS: TOTAL VOLUME 5 ml
[2021-02-17 14:04] LABS: CLARITY CLOUDY
[2021-02-17 14:09] LABS: BF LYMPHOCYTES 91 %; BF POLYS 9 %; BF TISSUE 10 /100 WBC
[2021-02-17 14:43] LABS: SOURCE ABDOMINAL
[2021-02-17 19:07] LABS: MAGNESIUM 2.2 mg/dL (1.8-2.4); POTASSIUM 3.7 mmol/L (3.5-5.1)
[2021-02-18] VITALS (98 sets, daily range): BP systolic 75–129; BP diastolic 48–89
[2021-02-18 05:14] LABS: ABSOLUTE BASOPHILS 0.1 thou/uL (0.0-0.2); ABSOLUTE EOSINOPHILS 0.2 thou/uL (0.0-0.7); ABSOLUTE LYMPHOCYTES 2.6 thou/uL (0.8-5.3); ABSOLUTE MONOCYTES 0.4 thou/uL (0.0-1.2); ABSOLUTE NEUTROPHILS 5.2 thou/uL (1.6-8.1); BASOPHILS 1.1 %; EOSINOPHILS 2.3 %; HEMATOCRIT 22.6 % (37.0-47.0); HEMOGLOBIN 7.6 gm/dL (12.0-15.0); LYMPHOCYTES 30.8 %; MCHC 33.5 g/dL (28.0-37.0); MCV 107.5 fL (80.0-100.0); MONOCYTES 4.8 %; MPV 7.3 fl. (7.2-11.1); NUCLEATED RBCS 0 /100WBC; PLATELET COUNT* 200 thou/uL (150-400); RBC 2.11 mil/uL (4.20-5.00); RDW-CV 16.6 % (10.5-14.5); WBC 8.6 thou/uL (4.0-11.0)
[2021-02-18 05:36] LABS: INR 1.4; PROTIME 14.5 Seconds (9.20-11.50)
[2021-02-18 05:50] LABS: ALBUMIN 2.2 g/dL (3.4-5.0); CALCIUM 7.2 mg/dL (8.5-10.1); CREATININE 0.6 mg/dL (0.6-1.3); POTASSIUM 3.5 mmol/L (3.5-5.1); TOTAL BILIRUBIN 2.5 mg/dL (<0.1-1.0); TOTAL PROTEIN 4.7 g/dL (6.4-8.2)
[2021-02-18 18:06] LABS: BODY FLUID PROTEIN 0.4 g/dL (())
--- NOTE | 2021-02-18 19:00 | NUR ---
Pt drowsy and non-communicative. Pt moans/groans when repositioned or when receiving enemas (receiving vancomycin enemas q6h via FMS). Administering lorazepam prior to enemas. Roberson draining concentrated tulio urine; only 250 out for this shift. O2 titrated down from 10L to 6L today. Levophed gtt titrated from 13 to 4 mcg; and Precedex gtt titrated from 0.2 to 0.4 mcg. Pt restless at times, but seems to be related to coughing spells. Will continue to monitor.
[2021-02-18 22:01] LABS: BE 7.7 mmol/L (-2 to +3); PCO2 41.8 mmHg (35.0-45.0); PO2 116.8 mmHg (75.0-100.0); pH 7.497 (7.340-7.450)
[2021-02-19] VITALS (92 sets, daily range): BP systolic 51–187; BP diastolic 34–156
[2021-02-19 06:05] LABS: HEMATOCRIT 23.8 % (37.0-47.0); MCH 36.6 pg (26.0-34.0); MCHC 33.7 g/dL (28.0-37.0); MCV 108.7 fL (80.0-100.0); MPV 7.6 fl. (7.2-11.1); RBC 2.19 mil/uL (4.20-5.00); RDW-CV 16.2 % (10.5-14.5); WBC 6.7 thou/uL (4.0-11.0)
[2021-02-19 06:19] LABS: CALCIUM 7.1 mg/dL (8.5-10.1); CREATININE 0.6 mg/dL (0.6-1.3); POTASSIUM 3.1 mmol/L (3.5-5.1); TOTAL BILIRUBIN 2.1 mg/dL (<0.1-1.0); TOTAL PROTEIN 4.7 g/dL (6.4-8.2)
--- NOTE | 2021-02-19 06:32 | NUR ---
PRESEDEX STOPPED AT 0500.
--- NOTE | 2021-02-19 14:38 | CON ---
[address] [address] CONSULTATION Name: KATRINAGELY Room: [address] IN M.R.#: [id number] Admission: 02/15/21 Attend Phys: Shiraz Russ MD Discharge: Date of : 67 Report #: [id number] THIS REPORT FOR: cc: Cl Street Ahmad W. DO Vardakis, Gregory DO cc: Shiraz Russ MD DATE OF CONSULTATION: 02/16/2021 REFERRING PHYSICIAN: Shiraz Russ MD REASON FOR CONSULTATION: Abdominal pain, history of C. diff. ASSESSMENT AND PLAN: 1. Abdominal pain associated with severe diarrhea and sepsis syndrome - suspect severe Clostridium difficile colitis. 2. Hypotension secondary to #1. 3. Severe hyperkalemia secondary to severe diarrhea. 4. Lactic acidosis secondary to sepsis syndrome. 5. Chronic alcohol abuse with suspected alcoholic cirrhosis. RECOMMENDATIONS: 1. We will place the patient on C. diff precautions. 2. We will begin the patient on vancomycin 250 mg p.o. q.i.d. as well as Flagyl 500 mg IV piggyback 4 times q.i.d. 3. We will perform a CT scan of the abdomen and pelvis without any oral or IV contrast to evaluate her abdominal distention. We will begin her on a clear liquid diet and slowly advanced as tolerated. 4. Pending the results of the same and the patient's response to vancomycin and Flagyl, she may need to be transferred to [facility] for colonoscopy with fecal microbiota transplant ( preferred FMT) for suspected C. diff colitis. I have discussed the plans with the patient as well and she is agreeable to the same. HISTORY OF PRESENT ILLNESS: A 55-year-old white female alcoholic with suspected cirrhosis, who was admitted to the hospital with complaints of rather severe abdominal suspension with severe diarrhea and fatigue as well as weakness. She has battled C. diff infection off and on for the last several months and has already been through courses of vancomycin and Dificid and was most recently seen in our office back in November for the same. She was placed on Dificid 200 mg b.i.d. for 10 days, but has not been seen since that time. She has had persistent diarrhea and was going innumerable times to the bathroom. She is having complaints of abdominal pain, fecal urgency, fevers and chills. She denies any bleeding. She denies any nausea or vomiting, [place] [address] CONSULTATION Name: GELY HERNDON Room: [address] IN [facility]#: [id number] Admission: 02/15/21 Attend Phys: Shiraz Russ MD Discharge: Date of : 67 Report #: [id number] eat because of abdominal pain and distention. She presented to the emergency room hypotensive, requiring IV hydration, placement of a central line and start of pressor support. With regards to the patient's alcohol history, she drinks a cactus juice with vodka on a daily basis. She has a longstanding history of chronic alcohol abuse. ALLERGIES: None. REPORTED MEDICATIONS: She cannot give me any history regarding the same. PAST MEDICAL AND SURGICAL HISTORY: Remarkable for previous hysterectomy, left knee surgery, recurrent C. diff as I mentioned above, chronic alcoholic liver disease with cirrhosis. SOCIAL HISTORY: The patient continues to smoke and drink. FAMILY HISTORY: Not pertinent. PHYSICAL EXAMINATION: GENERAL: Revealed an ill-appearing 55-year-old white female who appears much older than her stated age. CARDIOPULMONARY: Revealed a tachycardic rate and rhythm. LUNGS: Clear with diminished breath sounds at the bases. ABDOMEN: Soft. It was distended and tender throughout. No rebound or guarding was noted. I cannot really appreciate whether or not there is any ascites or not. She does have 2+ peripheral edema. LABORATORY DATA: Her laboratory test from the revealed a white count of 6.0, hemoglobin 7.7, platelet count 166,000, MCV is 103.8 and RDW of 16.0. Her complete metabolic panel revealed a sodium of 130, potassium 1.6, chloride 88, bicarbonate 39. Her BUN is 6, creatinine 0.8. Her GFR is 75. Total bilirubin 2.0, alkaline phosphatase 174, AST 270, ALT 85 and albumin was only 1.5. Her urine drug screen was negative. DISCUSSION: At the present time, the patient has Probable Clostridium difficile colitis. We will proceed with measures as I mentioned above and make further recommendations thereafter. <ELECTRONICALLY SIGNED> By: Arun Mott DO 02/19/21 1438 1030 1251rAun Mott DO /nt
--- NOTE | 2021-02-19 14:39 | CON ---
[address] [address] CONSULTATION Name: KATRINAGELY Room: [address] IN M.R.#: [id number] Admission: 02/15/21 Attend Phys: Shiraz Russ MD Discharge: Date of : 67 Report #: [id number] THIS REPORT FOR: cc: Cl Street,Arun Asher DO ~ cc: Cl Street DO ADDENDUM Addendum to job #[id number] which was a GI consult, performed on 02/16. I was unaware that the patient had undergone a full CT scan of the abdomen and pelvis yesterday. I have since reviewed that CT scan and I am impressed with the fact that the patient has ascites with diffuse colonic wall thickening. Her liver does not look particularly cirrhotic, but certainly spontaneous bacterial peritonitis is certainly a possibility given her longstanding history of chronic alcohol abuse. For this reason, I will ask Interventional Radiology to perform an ultrasound-guided paracentesis for diagnostic purposes and send the specimen off for stat cell count differential, total protein, albumin, culture and sensitivity as well as cytology tomorrow. This will likely need to be done under medical necessity of the patient's mental status should get worse and over the next 24-48 hours. <ELECTRONICALLY SIGNED> By: Arun Mott DO 02/19/21 1439 1031 1256DO cassy Cardoza
--- NOTE | 2021-02-19 14:56 | NUR ---
PT VERY DROWSY AND SOMNOLENT, MOANS TO EVERY TOUCH AND MOVEMENT, NO FOLLOWING OF COMMANDS. SUCKS ON WATER SWABS AND HAD GOOD COUGH. TPN RECOMMEDED BY GIDR CROWDER NOTIFIED- PLAN TO START TOMORROW AFTER CONSULTING RELIEF DRILLER.
[2021-02-19 21:48] LABS: CALCIUM 6.8 mg/dL (8.5-10.1); CREATININE 0.7 mg/dL (0.6-1.3); POTASSIUM 3.4 mmol/L (3.5-5.1)
[2021-02-19 21:52] LABS: ALBUMIN 1.7 g/dL (3.4-5.0); MAGNESIUM 1.2 mg/dL (1.8-2.4); TOTAL BILIRUBIN 1.8 mg/dL (<0.1-1.0); TOTAL PROTEIN 4.3 g/dL (6.4-8.2)
[2021-02-20] VITALS (49 sets, daily range): BP systolic 74–121; BP diastolic 40–85
[2021-02-20 06:00] LABS: HEMATOCRIT 24.8 % (37.0-47.0); HEMOGLOBIN 8.3 gm/dL (12.0-15.0); MCH 36.7 pg (26.0-34.0); MCHC 33.4 g/dL (28.0-37.0); MCV 109.7 fL (80.0-100.0); MPV 7.5 fl. (7.2-11.1); RBC 2.26 mil/uL (4.20-5.00); RDW-CV 16.5 % (10.5-14.5); WBC 8.5 thou/uL (4.0-11.0)
[2021-02-20 06:05] LABS: CALCIUM 7.2 mg/dL (8.5-10.1); CREATININE 0.7 mg/dL (0.6-1.3); POTASSIUM 4.1 mmol/L (3.5-5.1)
--- NOTE | 2021-02-20 10:02 | EKG ---
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: SHAWN : 1965 Requested By: Shiraz Russ Order Number: [id number] Reading MD: Gomez Jolley Measurements Intervals [place] Rate: 141 P: -20 HI: 151 QRS: 78 QRSD: 86 T: 183 QT: 330 QTc: 506 Interpretive Statements atrial fibrillation with abberrancy Ventricular premature complex Low voltage, extremity and precordial leads Borderline repolarization abnormality Borderline prolonged QT interval Compared to ECG 02/15/2021 17:08:25 ST (T wave) deviation now present Sinus rhythm no longer present Electronically Signed On 02-20-2021 10:02:37 CDT by Gomez Jolley [email or web address] <ELECTRONICALLY SIGNED> By: Gomez Jolley MD, FAC 02/20/21 1002 12 12 Gomez Jolley MD, [facility] /EPI
--- NOTE | 2021-02-20 10:04 | EKG ---
[place] [address] ELECTROCARDIOGRAM REPORT Name: GELY HERNDON Room: [address] IN .R.#: [id number] Admission: 02/15/21 Attend Phys: Shiraz Russ, Discharge: Date of : 67 Date of Service: 02/19/212114 Report #: [id number] THIS REPORT FOR: //name// [facility] Test Date: 2021-02-19 Test Time: 21:15:44 Pat Name: GELY HERNDON Department: Room: [address] Gender: F Scout: SATHYA : 1965 Requested By: Shiraz Russ Order Number: [id number] Reading MD: Gomez Jolley Measurements Intervals [place] Rate: 79 P: 55 DC: 167 QRS: 55 QRSD: 87 T: 34 QT: 532 QTc: 611 Interpretive Statements Sinus rhythm Low voltage, extremity and precordial leads Nonspecific T abnormalities, anterior leads Prolonged QT interval Compared to ECG 02/19/2021 21:13:57 atrial fibrillation no longer present ST (T wave) deviation no longer present Electronically Signed On 02-20-2021 10:03:57 CDT by Gomez Jolley [email or web address] <ELECTRONICALLY SIGNED> By: Gomez Jolley MD, [facility] 02/20/21 1003 14 14 Gomez Jolley MD, [facility] /EPI
[2021-02-21] VITALS (51 sets, daily range): BP systolic 74–117; BP diastolic 52–83
[2021-02-21 03:54] LABS: HEMATOCRIT 27.6 % (37.0-47.0); MCH 36.3 pg (26.0-34.0); MCHC 32.6 g/dL (28.0-37.0); MCV 111.3 fL (80.0-100.0); MPV 7.8 fl. (7.2-11.1); RBC 2.48 mil/uL (4.20-5.00); RDW-CV 17.1 % (10.5-14.5)
[2021-02-21 04:03] LABS: CALCIUM 7.5 mg/dL (8.5-10.1); CREATININE 0.7 mg/dL (0.6-1.3)
--- NOTE | 2021-02-21 13:28 | NUR ---
POC is for pt to possibly have NG tube placed for vanc. Barrier to d/c is pt is on precedex gtt.
[2021-02-21 14:10] LABS: CALCIUM 7.4 mg/dL (8.5-10.1); CREATININE 0.9 mg/dL (0.6-1.3); MAGNESIUM 1.4 mg/dL (1.8-2.4); POTASSIUM 3.6 mmol/L (3.5-5.1)
[2021-02-21 16:57] LABS: BE 8.5 mmol/L (-2 to +3); PCO2 38.9 mmHg (35.0-45.0); PO2 97.9 mmHg (75.0-100.0)
[2021-02-22] VITALS (101 sets, daily range): BP systolic 53–118; BP diastolic 34–79
[2021-02-22 04:07] LABS: HEMATOCRIT 26.5 % (37.0-47.0); MCH 36.9 pg (26.0-34.0); MCHC 33.8 g/dL (28.0-37.0); MCV 109.1 fL (80.0-100.0); MPV 8.4 fl. (7.2-11.1); RBC 2.43 mil/uL (4.20-5.00); RDW-CV 17.5 % (10.5-14.5); WBC 17.2 thou/uL (4.0-11.0)
[2021-02-22 04:20] LABS: BUN 3 mg/dL (7-18); CALCIUM 7.7 mg/dL (8.5-10.1); CHLORIDE 107 mmol/L (98-107); CO2 31 mmol/L (21-32); CREATININE 0.8 mg/dL (0.6-1.3); GLUCOSE 182 mg/dL (70-99)
[2021-02-22 04:33] LABS: ANION GAP < 0 mmol/L (7-16); SODIUM 132 mmol/L (136-145)
[2021-02-22 04:34] LABS: POTASSIUM 2.6 mmol/L (3.5-5.1)
--- NOTE | 2021-02-22 09:43 | EKG ---
[place] [address] ELECTROCARDIOGRAM REPORT Name: GELY HERNDON Room: [address] ADM IN M.R.#: [id number] Admission: 02/15/21 Attend Phys: Shiraz Russ, Discharge: Date of : 67 Date of Service: 02/21/21 2315 Report #: [id number] THIS REPORT FOR: //name// [facility] Test Date: 2021-02-21 Test Time: 23:15:42 Pat Name: GELY HERNDON Department: Room: [address] Gender: F Dining Room Busser: LEVI : 1965 Requested By: Shiraz Russ Order Number: [id number] Reading MD: Gomez Jolley Measurements Intervals [place] Rate: 123 P: 55 SC: 189 QRS: 42 QRSD: 64 T: -77 QT: 342 QTc: 490 Interpretive Statements Sinus tachycardia Low voltage, extremity and precordial leads Borderline repolarization abnormality Borderline prolonged QT interval Compared to ECG 02/19/2021 21:15:44 ST (T wave) deviation now present Sinus rhythm no longer present Electronically Signed On 02-22-2021 9:43:34 CDT by Gomez Jolley [email or web address] <ELECTRONICALLY SIGNED> By: Gomez Jolley MD, [facility] 02/22/21 0943 2315 2315 Gomez Jolley MD, [facility] /EPI
[2021-02-22 10:44] LABS: APTT 43.8 Seconds (25.0-31.3); INR 1.9; PROTIME 19.3 Seconds (9.20-11.50)
--- NOTE | 2021-02-22 13:56 | EKG ---
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: UNKNOWN : 1965 Requested By: Vick Palm Order Number: [id number] Amairani MD: Gomez Jolley Measurements Intervals [place] Rate: 61 P: 85 HI: 173 QRS: 82 QRSD: 109 T: 180 QT: 624 QTc: 629 Interpretive Statements Sinus bradycardia poor r wave progression Multiple and consecutive supraventricular premature complexes Low voltage, extremity and precordial leads Nonspecific T abnormalities, lateral leads Prolonged QT interval Compared to ECG 02/21/2021 23:15:42 supraventricular premature complex(es) now present Sinus tachycardia no longer present Electronically Signed On 02-22-2021 13:55:56 CDT by Gomez Jolley [email or web address] <ELECTRONICALLY SIGNED> By: Gomez Jolley MD, [facility] 02/22/21 1355 1101 1101 Gomez Jolley MD, [facility] /EPI
--- NOTE | 2021-02-22 13:57 | EKG ---
[place] [address] ELECTROCARDIOGRAM REPORT Name: GELY HERNDON Room: [address] IN M.R.#: [id number] Admission: 02/15/21 Attend Phys: Shiraz Russ, Discharge: Date of : 67 Date of Service: 02/22/21 1105 Report #: [id number] THIS REPORT FOR: //name// [facility] Test Date: 2021-02-22 Test Time: 11:05:16 Pat Name: GELY HERNDON Department: Room: [address] Gender: F Interventional Sale Consultant: UNKNOWN : 1965 Requested By: Vick Palm Order Number: [id number] Amairani MD: Gomez Jolley Measurements Intervals [place] Rate: 59 P: 39 ME: 158 QRS: 78 QRSD: 112 T: 214 QT: 608 QTc: 603 Interpretive Statements Sinus rhythm Atrial premature complexes Borderline intraventricular conduction delay Low voltage, extremity and precordial leads Prolonged QT interval Lead(s) I were not used for morphology analysis Compared to ECG 02/22/2021 11:01:05 Electronically Signed On 02-22-2021 13:56:56 CDT by Gomez Jolley [email or web address] <ELECTRONICALLY SIGNED> By: Gomez Jolley MD, [facility] 02/22/21 1356 1105 1105 Gomez Jolley MD, [facility] /EPI
[2021-02-22 14:04] LABS: CSF CLARITY CLEAR; CSF COLOR COLORLESS; CSF EOSINOPHILS ND %; CSF LYMPHOCYTES ND % (40-80); CSF MONONUCLEARS ND % (15-45); CSF OTHER ND; CSF POLYS ND % (0-6); CSF RBC 550 /mm3; CSF WBC 0 /mm3 (0-10); VOLUME 3.2 ml
[2021-02-22 14:27] LABS: CSF GLUCOSE 128 mg/dl (40-70); CSF PROTEIN 37.4 mg/dl (15-45)
--- NOTE | 2021-02-22 16:03 | NUR ---
Attempted outreach to son () and bestfriend (Morena) (see assessment hx for contact info). Son's phone is disconnect and left vm for bestriend. Attempted to update on plan of care and obtain CM hx. Patient is currently on bipap at 100% FiO2. Continued levo, abx, precedex and TPN. CM to continue to follow
[2021-02-22 16:29] LABS: CALCIUM 7.4 mg/dL (8.5-10.1); CREATININE 0.6 mg/dL (0.6-1.3); POTASSIUM 3.7 mmol/L (3.5-5.1)
[2021-02-22 16:31] LABS: MAGNESIUM 2.2 mg/dL (1.8-2.4); PHOSPHORUS* 1.9 mg/dL (2.5-4.9)
[2021-02-22 17:07] LABS: ABSOLUTE EOSINOPHILS 0.2 thou/uL (0.0-0.7); ABSOLUTE LYMPHOCYTES 1.7 thou/uL (0.8-5.3); ABSOLUTE MONOCYTES 0.3 thou/uL (0.0-1.2); BASOPHILS 0.2 %; EOSINOPHILS 1.4 %; HEMATOCRIT 25.4 % (37.0-47.0); HEMOGLOBIN 8.3 gm/dL (12.0-15.0); LYMPHOCYTES 11.7 %; MCH 35.7 pg (26.0-34.0); MCHC 32.6 g/dL (28.0-37.0); MCV 109.7 fL (80.0-100.0); MONOCYTES 1.9 %; NUCLEATED RBCS 0 /100WBC; PLATELET COUNT* 79 thou/uL (150-400); POLYS 84.8 %; RBC 2.32 mil/uL (4.20-5.00); RDW-CV 17.2 % (10.5-14.5); WBC 14.2 thou/uL (4.0-11.0)
[2021-02-22 17:26] LABS: ALBUMIN 1.3 g/dL (3.4-5.0); DIRECT BILIRUBIN 0.9 mg/dL (<0.1-0.3); TOTAL BILIRUBIN 1.3 mg/dL (<0.1-1.0); TOTAL PROTEIN 4.2 g/dL (6.4-8.2)
[2021-02-22 17:44] LABS: CALCIUM 6.8 mg/dL (8.5-10.1); CREATININE 0.6 mg/dL (0.6-1.3); MAGNESIUM 1.9 mg/dL (1.8-2.4); PHOSPHORUS* 1.9 mg/dL (2.5-4.9); POTASSIUM 4.2 mmol/L (3.5-5.1)
[2021-02-22 18:43] LABS: SGOT 69.6 U/L (15-37)
[2021-02-22 19:04] LABS: BE 2.4 mmol/L (-2 to +3); PCO2 37.5 mmHg (35.0-45.0); PO2 66.5 mmHg (75.0-100.0); pH 7.462 (7.340-7.450)
--- NOTE | 2021-02-22 20:16 | NUR ---
HEMODYNAMIC AND RESPIRATORY INSTABILITY THROUGHOUT THE DAY. DR CARDENAS CONSULTED LATE IN THE DAY, PER HIS ORDER PT WAS INTUBATED AT APPROXIMATELY 1640. MULTIPLE RHYTHM CHANGES THROUGHOUT THE SHIFT VARYING FROM SR TO MULTIFOCAL TACHY AND KAPIL ARRHYTHMIAS, EKG ON CHART & CARDIOLOGY CONSULTED. LP DONE IN IR THIS AFTERNOON, PER DR CHANCE SPECIMEN IS NOT SUGGESTIVE OF INFECTION IN CSF; STATES HE PLANS TO PERFORM FLEX SIG VS COLONOSCOPY AT BEDSIDE TOMORROW AFTERNOON. PCR COVID SWAB SENT TO LAB, ENHANCED ISOLATION INITIATED UNTIL RESULTED.
[2021-02-23] VITALS (91 sets, daily range): BP systolic 87–120; BP diastolic 51–76
[2021-02-23 00:47] LABS: URINE BILIRUBIN NEGATIVE (Negative); URINE BLOOD NEGATIVE (Negative); URINE CLARITY CLEAR; URINE COLOR YELLOW; URINE GLUCOSE-RANDOM NEGATIVE (Negative); URINE KETONES NEGATIVE (Negative); URINE LEUKOCYTES-REFLEX NEGATIVE (Negative); URINE NITRITE-REFLEX NEGATIVE (Negative); URINE PROTEIN NEGATIVE (Negative); URINE UROBILINOGEN 0.2 E.U./dl (0.2-1.0)
--- NOTE | 2021-02-23 01:29 | NUR ---
DR SHEETS NOTIFIED DUE TO AFIB/RVR HEART RATE 160-200. ORDERS RECIEVED. LEVOPHED DISCONTINUED AT 0030.
[2021-02-23 05:55] LABS: HEMOGLOBIN 8.5 gm/dL (12.0-15.0); MCH 36.1 pg (26.0-34.0); MCHC 32.6 g/dL (28.0-37.0); MCV 110.9 fL (80.0-100.0); MPV 8.4 fl. (7.2-11.1); NUCLEATED RBCS 1 /100WBC; PLATELET COUNT* 69 thou/uL (150-400); RBC 2.35 mil/uL (4.20-5.00); RDW-CV 18.1 % (10.5-14.5); WBC 14.1 thou/uL (4.0-11.0)
[2021-02-23 06:07] LABS: PROTIME 18.8 Seconds (9.20-11.50)
[2021-02-23 06:08] LABS: APTT 45.4 Seconds (25.0-31.3); INR 1.8
[2021-02-23 06:11] LABS: ALBUMIN 2.7 g/dL (3.4-5.0); CALCIUM 7.3 mg/dL (8.5-10.1); CREATININE 0.8 mg/dL (0.6-1.3); MAGNESIUM 2.2 mg/dL (1.8-2.4); POTASSIUM 4.6 mmol/L (3.5-5.1); TOTAL BILIRUBIN 1.7 mg/dL (<0.1-1.0); TOTAL PROTEIN 5.5 g/dL (6.4-8.2)
[2021-02-23 06:15] LABS: PHOSPHORUS* 3.9 mg/dL (2.5-4.9)
[2021-02-23 07:09] LABS: ABSOLUTE LYMPHOCYTES 0.8 thou/uL (0.8-5.3); ABSOLUTE NEUTROPHILS 13.3 thou/uL (1.6-8.1); ANISOCYTOSIS 2+; MACROCYTES 1+; METAMYELOCYTES 1 %; PLATELET ESTIMATE DECREASED
[2021-02-23 08:09] LABS: BE 2.2 mmol/L (-2 to +3); PCO2 34.8 mmHg (35.0-45.0); PO2 82.5 mmHg (75.0-100.0); pH 7.482 (7.340-7.450)
--- NOTE | 2021-02-23 10:33 | NUR ---
ICU Rounds: Patient intubated yesterday (02/22). Vent (FiO2 90% and peep 5). Currently on levo, sol, abx, steroids and TPN. PCR pending at this time. CM to reach out to family.
[2021-02-23 15:04] LABS: CALCIUM 7.1 mg/dL (8.5-10.1); CREATININE 0.9 mg/dL (0.6-1.3); POTASSIUM 4.7 mmol/L (3.5-5.1)
--- NOTE | 2021-02-23 20:03 | NUR ---
ASSUMED CARE AT 0700. PT INTUBATED AND SEDATED. CURRENT SEDATION CONSISTS OF PROPOFOL, PRESIDEX, FENTANYL. COLONOSCOPY COMPLETED TODAY. ALL ASSESSMENTS COMPLETED CHARTED. PATIENT 3+ GENERALIZED EDEMA. LASIX GIVEN. 900 OUT BAUER. NO BM.
[2021-02-23 21:50] LABS: CALCIUM 7.2 mg/dL (8.5-10.1); POTASSIUM 4.2 mmol/L (3.5-5.1)
--- NOTE | 2021-02-23 23:42 | NUR ---
neosynephrine discontinued at 2300.
[2021-02-24] VITALS (72 sets, daily range): BP systolic 86–104; BP diastolic 51–66
[2021-02-24 05:37] LABS: ABSOLUTE LYMPHOCYTES 2.3 thou/uL (0.8-5.3); ABSOLUTE MONOCYTES 0.5 thou/uL (0.0-1.2); BASOPHILS 0.3 %; HEMATOCRIT 20.1 % (37.0-47.0); LYMPHOCYTES 17.9 %; MCH 36.4 pg (26.0-34.0); MCHC 32.3 g/dL (28.0-37.0); MCV 112.7 fL (80.0-100.0); MONOCYTES 3.5 %; NUCLEATED RBCS 1 /100WBC; PLATELET COUNT* 50 thou/uL (150-400); POLYS 78.3 %; RBC 1.78 mil/uL (4.20-5.00); WBC 12.7 thou/uL (4.0-11.0)
[2021-02-24 05:55] LABS: ALBUMIN 2.8 g/dL (3.4-5.0); APTT 51.9 Seconds (25.0-31.3); CALCIUM 7.4 mg/dL (8.5-10.1); INR 1.6; POTASSIUM 3.7 mmol/L (3.5-5.1); PROTIME 16.1 Seconds (9.20-11.50); TOTAL BILIRUBIN 2.3 mg/dL (<0.1-1.0); TOTAL PROTEIN 5.1 g/dL (6.4-8.2)
[2021-02-24 05:59] LABS: HEMOGLOBIN 6.5 gm/dL (12.0-15.0)
[2021-02-24 06:07] LABS: PHOSPHORUS* 4.6 mg/dL (2.5-4.9)
[2021-02-24 07:58] LABS: BE -1.1 mmol/L (-2 to +3); PCO2 49.9 mmHg (35.0-45.0); PO2 93.4 mmHg (75.0-100.0); pH 7.319 (7.340-7.450)
--- NOTE | 2021-02-24 09:24 | NUR ---
ICU Rounds: Patient remains on vent (FiO2 90% and peep 10). CT currently shows multiple effusions. Jose d'cd last night. Continued fent, abx, steroids, precedex, propofol and TPN. Spoke to son who is currently in the hospital at [facility] for a bacterial infection. Son stated that prior to admission the patient and son lived together in a house with no stairs. Outside of the home, the patient uses either a walker or w/c. Inside the home, the patient is able to move around pretty independently. There is 1 step to enter the shower, so son stated that sometimes the patient will just wash up in the sink versus take a shower. PCP is Dr. Street ([place], [place]). No hx of HH, O2, bipap/cpap, dialysis, infusion therapy or BHS. Patient has a hx of SNF at [place]. Patient was there last year during COVID for 1-2 months. No DPOA in place at this time. Son updated on plan of care. Patient to stay through the weekend. CM to continue to follow
--- NOTE | 2021-02-24 10:17 | EKG ---
[place] [address] ELECTROCARDIOGRAM REPORT Name: GELY HERNDON Room: [address] IN .R.#: [id number] Admission: 02/15/21 Attend Phys: Shiraz Russ, Discharge: Date of : 67 Date of Service: 02/23/212156 Report #: [id number] THIS REPORT FOR: //name// [facility] Test Date: 2021-02-23 Test Time: 21:57:32 Pat Name: GELY HERNDON Department: Room: [address] Gender: F Historian Dramatic Arts: SATHYA : 1965 Requested By: Maribeth Baez Order Number: [id number] Reading MD: Gomez Jolley Measurements Intervals [place] Rate: 94 P: 55 VA: 197 QRS: 75 QRSD: 75 T: 201 QT: 347 QTc: 434 Interpretive Statements Sinus rhythm Borderline prolonged VA interval Low voltage, extremity and precordial leads Nonspecific T abnormalities, lateral leads Lead(s) aVL were not used for morphology analysis Compared to ECG 02/22/2021 11:05:16 Atrial premature complex(es) no longer present Prolonged QT interval no longer present Electronically Signed On 02-24-2021 10:16:50 CDT by Gomez Jolley [email or web address] <ELECTRONICALLY SIGNED> By: Gomez Jolley MD, [facility] 02/24/21 1016 56 56 Gomez Jolley MD, [facility] /EPI
--- NOTE | 2021-02-24 10:25 | CON ---
[address] [address] CONSULTATION Name: KATRINAGELY Room: [address] IN M.R.#: [id number] Admission: 02/15/21 Attend Phys: Shiraz Russ MD Discharge: Date of : 67 Report #: [id number] THIS REPORT FOR: cc: Cl Street Ahmad W. DO Pervez, Adeel MD ~ DATE OF CONSULTATION: 02/22/2021 REQUESTING PHYSICIAN: Consult has been requested by . INDICATION FOR CONSULTATION: Acute hypoxemic respiratory failure. HISTORY OF PRESENT ILLNESS: This is a 55-year-old female, past medical history includes a history of recurrent C. difficile colitis. She has also had persistent elevation of CPK. The patient does have a history of smoking as well as significant alcohol intake. The patient does not previously carry a diagnosis of COPD. At this time, the patient was initially admitted on 02/15. Presentation is with a fall. The patient also is reported to have had recent diarrhea and did state that she had been drinking vodka, although her initial alcohol level was negative. The patient has been hypotensive. She initially did not have major abnormalities on chest x-rays. She has progressively declined. She initially was on 2 liters nasal cannula. By the time I was consulted today, the patient was on 90-100% FiO2 with a BiPAP in place and was barely saturating in the low 90s. The patient also at this time was in shock and was on 15 mcg per minute of Levophed. She in addition was responding only to maximal painful stimuli, requested endotracheal intubation and the ER physician proceeded to intubating the patient. She has had a lumbar puncture today. She has also had a CT of the chest, abdomen and pelvis. Today, I reviewed all of the reports and reviewed the films with a CT chest. The patient does have a central line, does not have an A-line. The patient is unable to provide further history or review of systems. PAST MEDICAL HISTORY: Recurrent C. difficile colitis, persistent elevation of CPK, left knee surgery, stomach surgery, hysterectomy. She has had a recent echo, shows a left ventricular ejection fraction of 65-70% without elevation in right heart pressures. SOCIAL HISTORY: The patient has a history of significant alcohol intake, is also an active smoker. No known history of illegal drug use. CURRENT MEDICATIONS: List in [employer] [place] [address] CONSULTATION Name: GELY HERNDON Krishna Room: [address]#: [id number] Admission: 02/15/21 Attend Phys: Shiraz Russ MD Discharge: Date of : 67 Report #: [id number] HOME MEDICATIONS: List in [employer] reviewed. FAMILY HISTORY: There is no pertinent family history known at this time. IMMUNIZATION HISTORY: Unknown if the patient was vaccinated for COVID-19. PHYSICAL EXAMINATION: GENERAL: She is responding only to maximal painful stimuli. We just intubated her. VITAL SIGNS: Her heart rate is variable all the way from 75 to 150, blood pressure also between 90 and 50 systolics. She is on high- dose norepinephrine. She initially had a respiratory rate in the mid 20s. She is now intubated and is breathing at the rate set on the ventilator. She is afebrile. HEENT: Head is normocephalic and atraumatic. Endotracheal tube is somewhat low, but still in the trachea. NECK: Does not show raised JVP asymmetry, mass or lymph nodes. CHEST: Symmetrical expansion on inspection and palpation. On auscultation, breath sounds are bilaterally equal, decreased. I do not hear any added sounds. HEART: Regular. There is no murmur. ABDOMEN: Soft and nontender. EXTREMITIES: Lower extremities show no edema, no calf tenderness. SKIN: Dry and intact. NEUROLOGIC: Limited. There is no focal deficit identified though. The patient's CT is reviewed as above. Chest x-ray also performed post-intubation and reviewed. Arterial blood gases, lab work in [facility] reviewed. ASSESSMENT AND PLAN: 1. Acute hypoxemic respiratory failure. We have intubated the patient, has a central line. Considering significant hypotension, I would recommend that we go ahead and place an arterial line as well. If the blood pressure stabilizes, then I intend to increase PEEP. She was already on Precedex. Okay to continue Precedex. If needed, we will use p.r.n. Versed and fentanyl, and a fentanyl drip could be added if needed. 2. Pulmonary infiltrates/sepsis. The patient appears to be septic. The etiology of sepsis is not fully defined at this time. At first glance, it appears unlikely to me that the patient has encephalitis or meningitis. Regardless, we will follow lumbar puncture results. She does have extensive infiltrates, but these are not seen on the chest x-rays performed towards the beginning of this admission and therefore, it will be also possible that this is due to increase in pulmonary vascular congestion. Regardless, pending further evaluation, I recommend broad antibiotic coverage[place] [address] CONSULTATION Name: GELY HERNDON Room: [address] IN [facility]#: [id number] Admission: 02/15/21 Attend Phys: Shiraz Russ MD Discharge: Date of : 67 Report #: [id number] vancomycin. I discussed with and switched ceftriaxone over to cefepime. Continue Flagyl. We will evaluate further regarding risks and benefits of adding atypical coverage as well. I understand the patient does have a history of C. diff and more antibiotics do put her at risk of recurrence. 3. Severe shock. We will use norepinephrine if heart rate is okay. We will use phenylephrine if heart rate is high. Pending further evaluation, I went ahead and lashawn a cortisol level and we will start Solu-Medrol. If heart rate remains okay, we will start nebulized bronchodilators as well. Multiple cultures and serologies are ordered. Recommend checking a PCR for COVID as well and therefore, the patient is placed in isolation. 4. History of recurrent Clostridium difficile colitis. I favor continuing with Flagyl. She did receive oral vancomycin earlier. We will review with ID regarding whether or not the same should be reordered or not. 5. Hypoalbuminemia and fluid overload. I feel that the patient is overall fluid overloaded. I favor giving her albumin, however, we will need to first verify that we are able to oxygenate her. 6. Pleural effusions. We will consider thoracentesis tomorrow; however, we will need to reassess with platelets as well as coagulation studies. 7. History of persistent elevated CPK. See discussion above. 8. History of alcohol intake. 9. History of smoking. 10. Deep venous thrombosis prophylaxis. I discontinued Lovenox pending reevaluation with coags tomorrow. 11. Gastrointestinal prophylaxis: Protonix. 12. Probiotic: When able to, we will consider starting a probiotic as well. 13. Hemodynamic monitoring. As above, recommend placing an A-line. The patient is critically ill at this time. Total time spent providing critical care to this patient today exceeds 50 minutes. <ELECTRONICALLY SIGNED> By: Evert Olson MD 02/24/21 1025 1616 2212Acarol Olson MD /nt
[2021-02-24 17:06] LABS: ABSOLUTE BASOPHILS 0.1 thou/uL (0.0-0.2); ABSOLUTE EOSINOPHILS 0.1 thou/uL (0.0-0.7); ABSOLUTE LYMPHOCYTES 1.8 thou/uL (0.8-5.3); ABSOLUTE MONOCYTES 0.4 thou/uL (0.0-1.2); ABSOLUTE NEUTROPHILS 10.7 thou/uL (1.6-8.1); BASOPHILS 0.7 %; EOSINOPHILS 0.4 %; HEMATOCRIT 26.9 % (37.0-47.0); LYMPHOCYTES 13.8 %; MCHC 32.5 g/dL (28.0-37.0); MONOCYTES 3.2 %; MPV 9.6 fl. (7.2-11.1); NUCLEATED RBCS 2 /100WBC; PLATELET COUNT* 52 thou/uL (150-400); POLYS 81.9 %; RBC 2.57 mil/uL (4.20-5.00); RDW-CV 19.8 % (10.5-14.5); WBC 13.1 thou/uL (4.0-11.0)
[2021-02-24 17:11] LABS: HEMOGLOBIN 8.7 gm/dL (12.0-15.0); MCV 104.6 fL (80.0-100.0)
[2021-02-24 17:14] LABS: CALCIUM 7.7 mg/dL (8.5-10.1); POTASSIUM 3.8 mmol/L (3.5-5.1)
[2021-02-25] VITALS (76 sets, daily range): BP systolic 91–124; BP diastolic 53–76
[2021-02-25 04:26] LABS: ABSOLUTE BASOPHILS 0.1 thou/uL (0.0-0.2); ABSOLUTE LYMPHOCYTES 1.5 thou/uL (0.8-5.3); ABSOLUTE MONOCYTES 0.1 thou/uL (0.0-1.2); ABSOLUTE NEUTROPHILS 11.7 thou/uL (1.6-8.1); BASOPHILS 0.4 %; EOSINOPHILS 0.1 %; HEMATOCRIT 24.3 % (37.0-47.0); LYMPHOCYTES 10.9 %; MCH 34.3 pg (26.0-34.0); MCHC 32.9 g/dL (28.0-37.0); MCV 104.4 fL (80.0-100.0); MONOCYTES 0.7 %; MPV 8.9 fl. (7.2-11.1); NUCLEATED RBCS 2 /100WBC; PLATELET COUNT* 53 thou/uL (150-400); POLYS 87.9 %; RBC 2.33 mil/uL (4.20-5.00); RDW-CV 19.6 % (10.5-14.5); WBC 13.3 thou/uL (4.0-11.0)
[2021-02-25 04:44] LABS: ALBUMIN 2.7 g/dL (3.4-5.0); CALCIUM 7.6 mg/dL (8.5-10.1); MAGNESIUM 1.8 mg/dL (1.8-2.4); POTASSIUM 4.1 mmol/L (3.5-5.1); TOTAL BILIRUBIN 3.3 mg/dL (<0.1-1.0)
[2021-02-25 08:00] LABS: BE 1.4 mmol/L (-2 to +3); PCO2 44.1 mmHg (35.0-45.0); PO2 115.7 mmHg (75.0-100.0); pH 7.396 (7.340-7.450)
[2021-02-25 14:06] LABS: MYCOPLASMA PNEUMONIA IgG 150 U/mL (0-99); MYCOPLASMA PNEUMONIA IgM 877 U/mL (0-769)
[2021-02-25 16:19] LABS: INFLUENZA A ANTIGEN Negative (Negative); INFLUENZA B ANTIGEN Negative (Negative)
[2021-02-26] VITALS (56 sets, daily range): BP systolic 71–123; BP diastolic 51–94
[2021-02-26 02:51] LABS: HEMATOCRIT 29.5 % (37.0-47.0); RDW-CV 20.1 % (10.5-14.5)
[2021-02-26 02:52] LABS: HEMOGLOBIN 9.6 gm/dL (12.0-15.0); MCH 35.2 pg (26.0-34.0); MCHC 32.7 g/dL (28.0-37.0); MCV 107.6 fL (80.0-100.0); MPV 9.9 fl. (7.2-11.1); NUCLEATED RBCS 6 /100WBC; PLATELET COUNT* 99 thou/uL (150-400); RBC 2.74 mil/uL (4.20-5.00)
[2021-02-26 03:18] LABS: PHOSPHORUS* 3.7 mg/dL (2.5-4.9)
[2021-02-26 03:22] LABS: ALBUMIN 2.8 g/dL (3.4-5.0); CALCIUM 7.8 mg/dL (8.5-10.1); CREATININE 1.1 mg/dL (0.6-1.3); POTASSIUM 4.6 mmol/L (3.5-5.1); TOTAL BILIRUBIN 3.8 mg/dL (<0.1-1.0); TOTAL PROTEIN 5.2 g/dL (6.4-8.2)
--- NOTE | 2021-02-26 06:44 | NUR ---
NEOSYNEPHRINE TITRATED OFF AT 0645.
[2021-02-26 07:49] LABS: ABSOLUTE LYMPHOCYTES 2.5 thou/uL (0.8-5.3); ABSOLUTE MONOCYTES 0.5 thou/uL (0.0-1.2); ABSOLUTE NEUTROPHILS 14.9 thou/uL (1.6-8.1); ANISOCYTOSIS 1+; MYELOCYTES 2 %; PLATELET ESTIMATE DECREASED; POIKILOCYTOSIS 1+
[2021-02-26 07:50] LABS: MACROCYTES 1+; POLYCHROMASIA 1+
[2021-02-26 07:52] LABS: BE 2.8 mmol/L (-2 to +3); PO2 94.2 mmHg (75.0-100.0); pH 7.343 (7.340-7.450)
[2021-02-26 07:56] LABS: PCO2 55.1 mmHg (35.0-45.0)
[2021-02-27] VITALS (34 sets, daily range): BP systolic 83–124; BP diastolic 49–86
[2021-02-27 06:07] LABS: HEMATOCRIT 26.3 % (37.0-47.0); MCH 36.2 pg (26.0-34.0); RBC 2.47 mil/uL (4.20-5.00); RDW-CV 19.4 % (10.5-14.5); WBC 11.1 thou/uL (4.0-11.0)
[2021-02-27 06:09] LABS: HEMOGLOBIN 8.9 gm/dL (12.0-15.0); MCHC 33.9 g/dL (28.0-37.0); MCV 106.8 fL (80.0-100.0); MPV 10.4 fl. (7.2-11.1); NUCLEATED RBCS 4 /100WBC; PLATELET COUNT* 75 thou/uL (150-400)
[2021-02-27 06:15] LABS: APTT 33.3 Seconds (25.0-31.3); INR 1.3
[2021-02-27 06:16] LABS: ALBUMIN 2.6 g/dL (3.4-5.0); CALCIUM 8.3 mg/dL (8.5-10.1); CREATININE 0.9 mg/dL (0.6-1.3); MAGNESIUM 1.8 mg/dL (1.8-2.4); POTASSIUM 3.9 mmol/L (3.5-5.1); TOTAL BILIRUBIN 4.1 mg/dL (<0.1-1.0)
[2021-02-27 06:18] LABS: PHOSPHORUS* 2.6 mg/dL (2.5-4.9)
[2021-02-27 07:29] LABS: ATYPICAL LYMPHS 3 %; METAMYELOCYTES 2 %
[2021-02-27 07:31] LABS: ANISOCYTOSIS 2+; GIANT PLATELETS OCCASIONAL; MACROCYTES 2+; PLATELET ESTIMATE DECREASED; POLYCHROMASIA 2+
[2021-02-27 07:45] LABS: ATYPICAL MONONUCLEARS 1 %
[2021-02-27 08:14] LABS: BE 1.8 mmol/L (-2 to +3); PCO2 41.4 mmHg (35.0-45.0); PO2 83.8 mmHg (75.0-100.0); pH 7.422 (7.340-7.450)
[2021-02-27 09:37] LABS: ABSOLUTE LYMPHOCYTES 2.3 thou/uL (0.8-5.3); ABSOLUTE MONOCYTES 0.3 thou/uL (0.0-1.2); ABSOLUTE NEUTROPHILS 8.4 thou/uL (1.6-8.1)
--- NOTE | 2021-02-27 11:18 | NUR ---
Nutrition: noted pt off TPN and propofol. TF of Two Eliazar HN started at 20 ml/hr, this meets about 50% est kcal and protein needs. Rec goal rate of 40 ml/hr to meet about 100% est needs,
--- NOTE | 2021-02-27 13:38 | NUR ---
ICU Rounds: Patient remains on vent (FiO2 45% and peep 10). Continued fent, precedex, propofol, abx and steroids. Jose stopped yesterday.
[2021-02-27 17:03] LABS: BF RBC <1000 /mm3; TOTAL CELL COUNT 119 /mm3
[2021-02-27 17:28] LABS: BF LYMPHOCYTES 32 %; BF POLYS 68 %; BF TISSUE 15 /100 WBC
[2021-02-27 17:29] LABS: CLARITY HAZY; SOURCE PLEURAL FLUID; TOTAL VOLUME 860 ml
--- NOTE | 2021-02-27 20:00 | NUR ---
ASSUMED CARE AT 0700. PT HAD A THORACENTESIS COMPLETED TODAY ON THE LEFT SIDE, 860 WAS WITHDRAWN. PT ALSO HAD A 11 BEATS OF VTACH, GAVE MAG AND POTASSIUM AND SOTOLOL WAS ADDED TO HER MEDICATION REGIMEN. TUBE FEED GOAL INCREASED TO 35. 425 OUT OF BAUER. PT BLOOD GLUCOSE WAS 60 AT NOON, GAVE HALF AMPULE OF DEXTROSE AND RECHECKED, PT REMAINED WNL THE REST OF SHIFT. PT'S EXTREMETIES VERY EDEMATOUS. FIO2 AT 45%.
[2021-02-28] VITALS (24 sets, daily range): BP systolic 85–131; BP diastolic 54–87
--- NOTE | 2021-02-28 04:55 | NUR ---
ASSUMED CARE AT 1910H, ON VENT AT 45% AND WELL TOLERATED. ON PRECEDEX AND FENTANYL AT MAX DOSE. IN AND OUT OF AFIB. PT HAD HYPOTENSION, MARCOS DRIP RE-STARTED THEN OFF ARROUND MIDNIGHT. WITH LOW GRADE FEVER. PRN VERSED GIVEN ONCE. CONTINUE MONITORING AND TOWARDS GOALS.
[2021-02-28 05:37] LABS: ABSOLUTE LYMPHOCYTES 0.9 thou/uL (0.8-5.3); ABSOLUTE MONOCYTES 0.7 thou/uL (0.0-1.2); ABSOLUTE NEUTROPHILS 8.1 thou/uL (1.6-8.1); BASOPHILS 0.2 %; EOSINOPHILS 0.3 %; HEMATOCRIT 28.8 % (37.0-47.0); HEMOGLOBIN 9.4 gm/dL (12.0-15.0); LYMPHOCYTES 9.3 %; MCH 35.7 pg (26.0-34.0); MCHC 32.8 g/dL (28.0-37.0); MONOCYTES 7.5 %; MPV 10.3 fl. (7.2-11.1); NUCLEATED RBCS 3 /100WBC; PLATELET COUNT* 92 thou/uL (150-400); POLYS 82.7 %; RBC 2.64 mil/uL (4.20-5.00); RDW-CV 20.5 % (10.5-14.5); WBC 9.8 thou/uL (4.0-11.0)
[2021-02-28 05:50] LABS: APTT 29.6 Seconds (25.0-31.3); INR 1.3
[2021-02-28 05:53] LABS: ALBUMIN 2.3 g/dL (3.4-5.0); CALCIUM 8.1 mg/dL (8.5-10.1); CREATININE 0.8 mg/dL (0.6-1.3); MAGNESIUM 2.1 mg/dL (1.8-2.4); PHOSPHORUS* 1.7 mg/dL (2.5-4.9); POTASSIUM 3.6 mmol/L (3.5-5.1); TOTAL BILIRUBIN 4.7 mg/dL (<0.1-1.0); TOTAL PROTEIN 4.9 g/dL (6.4-8.2)
[2021-02-28 07:55] LABS: PO2 85.2 mmHg (75.0-100.0); pH 7.453 (7.340-7.450)
--- NOTE | 2021-02-28 11:38 | EKG ---
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 Religious Ritual: FORREST : 1965 Requested By: Rakesh Grady Order Number: [id number] Reading MD: Gomez Jolley Measurements Intervals [place] Rate: 97 P: [place]: QRS: 41 QRSD: 75 T: 219 QT: 363 QTc: 461 Interpretive Statements Atrial fibrillation low voltage nonspecific st segment changes Probable anterior infarct, age indeterminate Compared to ECG 02/23/2021 21:57:32 Sinus rhythm no longer present Electronically Signed On 02-28-2021 11:38:48 CDT by Gomez Jolley [email or web address] <ELECTRONICALLY SIGNED> By: Gomez Jolley MD, [facility] 02/28/21 1138 0729 0729 Gomez Jolley MD, [facility] /EPI
--- NOTE | 2021-02-28 13:08 | PATH ---
[address] [address] PATHOLOGY RPT PROCEDURE Name: GELY HERNDON Room: [address] IN M.R.#: [id number] Admission: 02/15/21 Date of : 67 Discharge: Report #: [id number] Path Case #: [id number] [facility] Accession Number: [id number] . 01 Material submitted: . PART A: colon - DESCENDING COLON ULCERATION. Modifiers: descending PART B: sigmoid colon - SIGMOID COLON ULCERATION . 01 Clinical history: . EGD AND COLONOSCOPY HYPOKALEMIA, WEAKNESS . 02 Diagnosis: A, B. Descending colon ulceration and sigmoid colon ulceration: - Mild active colitis with suggestion of chronic colitis, negative for granulomas, viral inclusions and dysplasia. See comment. (RICKEY:corby; 02/28/2021) MBR 02/28/2021 1045 Local . 02 Comment: A. Specimens A and B show similar findings of benign colonic mucosa with mild active inflammation evidenced by cryptitis and a few neutrophils scattered in the lamina propria, and both show some crypt disarray verging on distortion, without significant basal lymphoplasmacytosis suggesting chronic inflammation as well. There is no inflammatory pseudomembrane and ischemic features are not apparent. These findings could be attributed to use of non-steroidal anti-inflammatory agents or diverticular disease and Crohn's disease should be considered in the clinical differential as well. 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 02 Electronically signed: . Ricardo Lyles MD, Pathologist NPI- [id number] . 01 Gross description: . A. The specimen is received in formalin, labeled "Gely Herndon and descending colon biopsy ulceration". It consists of 3 de la fuente irregular soft tissue fragments ranging from 0.1-0.4 cm in greatest dimension. The specimen is entirely submitted between sponges in A1. . B. The specimen is received in formalin, labeled "Gely Herndon and sigmoid colon ulceration biopsy". It consists of 2 de la fuente irregular soft tissue fragments measuring 0.2 and 0.4 cm. The specimen is entirely submitted between sponges in B1. (MRF; 02/24/2021) MFE/MFE 02/24/20212040 Local . 02 Pathologist provided ICD-10: [place] [address] PATHOLOGY RPT PROCEDURE Name: GELY HERNDON Room: [address] IN [facility]#: [id number] Admission: 02/15/21 Date of : 67 Discharge: Report #: [id number] Path Case #: [id number] K52.9 . 02 CPT . [id number], [id number] Specimen Comment: A courtesy copy of this report has been sent to [phone] Specimen Comment: [phone], Specimen Comment: Report sent to , DR CABRERA / DR MENDIETA Performed at: [address] [facility] [address], [place], [place] [id number] MD Derick Perez MD Phone: [phone] Performed at: 02 [facility] Lizzeth Ellis, [place], [place] [id number] MD Ricardo Lyles MD Phone: [phone]
--- NOTE | 2021-02-28 14:49 | NUR ---
ICU Rounds: Patient remains on vent (FiO2 40% and Peep 5). Patient off pressors. Continued fent, precedex, steroids and abx. L thoracentesis done yesterday and R side to be done today. Started weaning trials today and patient failed.
--- NOTE | 2021-02-28 16:45 | NUR ---
WOUND NURSE: PATIENT WAS PROVIDED WITH HEELMEDIX BOOTS TO BLE YESTERDAY DUE TO PRESENCE OF STAGE 1 PRESSURE INJURY TO BOTH HEELS. NURSING TAKING CARE OF PATIENT TODAY REPORTS RUPTURED BLISTER THAT DEVELOPED UNDERS STATLOCK THAT HOLD BAUER CATHETERY. ICU NURSES TO MANAGE THIS. WILL DISCONTINUE WOUND CONSULT. PATIENT NOT TEACHEABLE.
[2021-02-28 17:15] LABS: CREATININE 0.7 mg/dL (0.6-1.3); MAGNESIUM 1.9 mg/dL (1.8-2.4); POTASSIUM 5.3 mmol/L (3.5-5.1)
[2021-03-01] VITALS (25 sets, daily range): BP systolic 99–143; BP diastolic 61–91
[2021-03-01 05:12] LABS: PHOSPHORUS* 1.8 mg/dL (2.5-4.9)
[2021-03-01 05:13] LABS: ABSOLUTE LYMPHOCYTES 0.6 thou/uL (0.8-5.3); ABSOLUTE MONOCYTES 0.5 thou/uL (0.0-1.2); ABSOLUTE NEUTROPHILS 10.8 thou/uL (1.6-8.1); ALBUMIN 2.5 g/dL (3.4-5.0); BASOPHILS 0.3 %; CREATININE 0.7 mg/dL (0.6-1.3); EOSINOPHILS 0.1 %; HEMATOCRIT 25.3 % (37.0-47.0); HEMOGLOBIN 8.5 gm/dL (12.0-15.0); LYMPHOCYTES 4.7 %; MAGNESIUM 1.9 mg/dL (1.8-2.4); MCH 36.7 pg (26.0-34.0); MCHC 33.6 g/dL (28.0-37.0); MCV 109.1 fL (80.0-100.0); MONOCYTES 4.5 %; MPV 10.1 fl. (7.2-11.1); NUCLEATED RBCS 1 /100WBC; PLATELET COUNT* 99 thou/uL (150-400); POLYS 90.4 %; RBC 2.32 mil/uL (4.20-5.00); TOTAL BILIRUBIN 3.5 mg/dL (<0.1-1.0)
[2021-03-01 05:29] LABS: POTASSIUM 3.9 mmol/L (3.5-5.1)
--- NOTE | 2021-03-01 09:19 | NUR ---
ICU Rounds: Patient remains on vent (FiO2 35% and peep 5). Continued precedex, abx, fent, steroids and versed. OG with TF. CM to reach out to family to touch basis.
--- NOTE | 2021-03-01 12:01 | CON ---
[address] [address] CONSULTATION Name: GELY HERNDON Krishna Room: [address] IN M.R.#: [id number] Admission: 02/15/21 Attend Phys: Shiraz Russ MD Discharge: Date of : 67 Report #: [id number] THIS REPORT FOR: cc: [address] Street Ahmad W. DO Biggs, F. Douglas MD [facility] ~ DATE OF CONSULTATION: 02/23/2021 CARDIOLOGY CONSULTATION HISTORY OF PRESENT ILLNESS: I was asked by Dr. Russ and Dr. Palm to see this 55-year-old white female in Cardiology consultation for evaluation and treatment of atrial fibrillation with a rapid ventricular response. This lady is intubated, sedated and on the ventilator and unable to give a history. She was admitted earlier this week, according to the record I have here, on 02/15/2021. She had been found down at home and unresponsive in her own feces. She was in septic shock and brought to the hospital. She was felt to have aspirated. She has bilateral diffuse infiltrates. This lady is known to the service from an admission about a month ago. She has alcohol abuse, I believe she was admitted for withdrawal then. She has cirrhosis with liver failure and ascites. She also has pleural effusions. She has elevated blood sugars consistent with diabetes, but she is apparently taking no medications. I am unaware of her allergies, as I cannot find out any recorded in the chart. She was on no home meds. She currently also has C. diff colitis, apparently. She had a rapid test for COVID that was negative, the PCR test is pending. She has been on pressors. Yesterday, she was on Levophed and quadruple strength Jose-Synephrine and last night, a little before midnight, she went into atrial fibrillation with a rapid ventricular response. She has been getting Xopenex inhalers. She has been getting treatments through her ET tube. Dr. Jolley was called and he gave her an initial dose of digoxin 0.5 mg IV and she got a subsequent dose about 6 hours later. She has not gotten any further doses. She reverted to sinus rhythm sometime during the night. This morning, she is in sinus rhythm with atrial premature beats. She is actually in sinus tachycardia with atrial premature beats. She is still on Levophed. Apparently, there is no history of atrial fibrillation. PHYSICAL EXAMINATION: GENERAL: She presents as a white female, in no acute distress. She is intubated, sedated and unresponsive. VITAL SIGNS: Her pulse was 97 and slightly irregular, blood pressure was 108/71, respirations were 16 and regular, temperature was 100.6. HEENT: Her head was atraumatic. Eyes clear. NECK: Supple. There is no jugular venous distention or hepatojugular reflux. Thyroid is not enlarged. There is no adenopathy. SKIN: Warm and dry. [place] [address] CONSULTATION Name: GELY HERNDON Room: [address]#: [id number] Admission: 02/15/21 Attend Phys: Shiraz Russ MD Discharge: Date of : 67 Report #: [id number] LUNGS: Reveal breath sounds were decreased bilaterally. Otherwise, they were fairly normal. HEART: Revealed distant first and second heart sounds. There was no S4, no S3. The rhythm is slightly irregular due to atrial premature beats. There were no murmurs, rubs, thrills, heaves or gallops. PMI was not displaced. ABDOMEN: Soft, flat, nontender, no palpable masses, no organomegaly. EXTREMITIES: Reveal no cyanosis, clubbing or edema. NEUROLOGIC: The patient did not mentate normally. She was unresponsive. She was not moving any of her extremities. LABORATORY DATA: Chest x-ray shows diffuse bilateral alveolar infiltrates. She has a right pleural effusion, small left pleural effusion. There is an ET tube in place. Initial troponin was normal at less than 0.06, subsequent have not been drawn. There was no BNP drawn. Her creatinine clearance is normal. Creatinines were in the normal range as were her BUNs. White count this morning was 14,100 with a hemoglobin of 8.5. Her INR was 1.8. IMPRESSION: 1. Atrial fibrillation with rapid ventricular response that has now converted to sinus tachycardia with atrial premature beats. 2. Septic shock. 3. Aspiration pneumonia. 4. Ethanol abuse. 5. Cirrhosis. 6. Liver failure. 7. Pleural effusions. 8. Ascites. 9. Clostridium difficile colitis. 10. Diabetes mellitus. RECOMMENDATIONS: I would keep her on digoxin. I will get BNP and an echo. She will also get a digoxin level. Thank you very much for asking me to see the patient. If there are any questions, please feel free to contact me. <ELECTRONICALLY SIGNED> By: Maribeth Baez MD, [facility] 03/01/21 1201 0934 1006F. Lemuel Baez MD, FACC /nt
[2021-03-01 12:07] LABS: BODY FLUID PROTEIN 1.2 g/dL (())
--- NOTE | 2021-03-01 15:05 | EKG ---
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 : 1965 Requested By: Rakesh Grady Order Number: [id number] Reading MD: Gomez Jolley Measurements Intervals [place] Rate: 87 P: 37 [place]: 170 QRS: 19 QRSD: 78 T: 209 QT: 420 QTc: 506 Interpretive Statements Sinus rhythm nonspecific st segment depression low voltage poor r wave progression Baseline wander in lead(s) V6 Compared to ECG 02/28/2021 07:29:06 Atrial fibrillation no longer present Myocardial infarct finding still present Electronically Signed On 03-01-2021 15:05:01 CDT by Gomez Jolley [email or web address] <ELECTRONICALLY SIGNED> By: Gomez Jolley MD, [facility] 03/01/21 1505 1327 1327 Gomez Jolley MD, FAC /EPI
--- NOTE | 2021-03-01 16:12 | NUR ---
WOUND NURSE: PATIENT SEEN TODAY AND ASSESSED BLISTER ONT EH RIGHT THIGH. MEASURES 9.5 X 5.5 X 0.1 CM. PALE PINK WOUND BED, SEROUS DRAINAGE. CLEANSED WITH WOUND CLEANSER AND GAUZE. APPLIED OPTIFOAM GENTLE AG. RECOMMEND 2X/WEEK DRESSING CHANGES. BILATERAL HEELS INTACT REDDENED BLANCHEABLE SKIN. HEELMEDIX BOOTS USED FOR OFFLOADING.
[2021-03-01 20:20] LABS: CREATININE 0.6 mg/dL (0.6-1.3); MAGNESIUM 2.2 mg/dL (1.8-2.4); POTASSIUM 3.6 mmol/L (3.5-5.1)
[2021-03-02] VITALS (48 sets, daily range): BP systolic 94–138; BP diastolic 55–89
[2021-03-02 04:21] LABS: HEMOGLOBIN 8.1 gm/dL (12.0-15.0); MCH 35.7 pg (26.0-34.0); MCHC 32.3 g/dL (28.0-37.0); MCV 110.3 fL (80.0-100.0); MPV 10.4 fl. (7.2-11.1); RBC 2.27 mil/uL (4.20-5.00); RDW-CV 22.7 % (10.5-14.5); WBC 14.5 thou/uL (4.0-11.0)
[2021-03-02 04:44] LABS: ALBUMIN 2.5 g/dL (3.4-5.0); CALCIUM 7.8 mg/dL (8.5-10.1); CREATININE 0.7 mg/dL (0.6-1.3); TOTAL BILIRUBIN 2.4 mg/dL (<0.1-1.0); TOTAL PROTEIN 4.8 g/dL (6.4-8.2)
--- NOTE | 2021-03-02 09:32 | NUR ---
ICU ROUNDS: PT WAS "FOUND ON GROUND BY A NEIGHBOR" PER BEDSIDE RN. PT HAS ETOH ADDICTION. PT IS VENT AND SEDATED, FAILED CPAP TRIAL. ON LVEO.
[2021-03-02 13:08] LABS: HSV 1 DNA Negative (Negative); HSV 2 DNA Negative (Negative)
[2021-03-02 15:16] LABS: CREATININE 0.7 mg/dL (0.6-1.3); MAGNESIUM 1.9 mg/dL (1.8-2.4)
[2021-03-02 16:43] LABS: CALCIUM 7.7 mg/dL (8.5-10.1); CREATININE 0.7 mg/dL (0.6-1.3); MAGNESIUM 1.8 mg/dL (1.8-2.4)
[2021-03-02 16:47] LABS: POTASSIUM 4.1 mmol/L (3.5-5.1)
[2021-03-02 18:14] LABS: BE 1.4 mmol/L (-2 to +3); PCO2 36.1 mmHg (35.0-45.0); pH 7.461 (7.340-7.450)
[2021-03-02 18:19] LABS: PO2 56.3 mmHg (75.0-100.0)
[2021-03-03] VITALS (49 sets, daily range): BP systolic 100–144; BP diastolic 63–95
[2021-03-03 04:36] LABS: ABSOLUTE BASOPHILS 0.2 thou/uL (0.0-0.2); ABSOLUTE LYMPHOCYTES 0.8 thou/uL (0.8-5.3); ABSOLUTE MONOCYTES 0.7 thou/uL (0.0-1.2); ABSOLUTE NEUTROPHILS 15.6 thou/uL (1.6-8.1); BASOPHILS 1.1 %; HEMATOCRIT 24.2 % (37.0-47.0); HEMOGLOBIN 7.9 gm/dL (12.0-15.0); LYMPHOCYTES 4.5 %; MCH 35.9 pg (26.0-34.0); MCHC 32.6 g/dL (28.0-37.0); MCV 109.8 fL (80.0-100.0); MONOCYTES 4.3 %; MPV 9.9 fl. (7.2-11.1); NUCLEATED RBCS 0 /100WBC; PLATELET COUNT* 145 thou/uL (150-400); POLYS 90.1 %; RBC 2.21 mil/uL (4.20-5.00); RDW-CV 23.3 % (10.5-14.5); WBC 17.3 thou/uL (4.0-11.0)
[2021-03-03 05:06] LABS: CREATININE 0.7 mg/dL (0.6-1.3); MAGNESIUM 2.2 mg/dL (1.8-2.4); POTASSIUM 3.8 mmol/L (3.5-5.1); TOTAL BILIRUBIN 2.1 mg/dL (<0.1-1.0); TOTAL PROTEIN 5.1 g/dL (6.4-8.2)
[2021-03-03 06:41] LABS: LIPASE 121 U/L (73-393); TRIGLYCERIDE 298 mg/dL (<150)
--- NOTE | 2021-03-03 12:07 | PATH ---
[address] [address] PATHOLOGY RPT PROCEDURE Name: GELY HERNDON Room: [address] IN [facility]#: [id number] Admission: 02/15/21 Date of : 67 Discharge: Report #: [id number] Path Case #: [id number] Note [facility] Accession Number: [id number] TESTS RESULT FLAG UNITS REF RANGE LAB Clinician Provided Cytology Information No. of containers..01 Other (Miscellaneous) Source: RIGHT PLEURAL FLUID DIAGNOSIS: 02 RIGHT PLEURAL FLUID INCONCLUSIVE. FEW ATYPICAL SINGLE CELLS WITH BACKGROUND OF REACTIVE MESOTHELIAL CELLS AND FEW INFLAMMATORY CELLS. SEE COMMENT. THIS INTERPRETATION INCLUDES EVALUATION OF A CELL BLOCK. COMMENT: THE ATYPICAL CELLS ARE WITHIN THE SPECTRUM OF REACTIVE MESOTHELIAL CELLS HOWEVER NEOLASIA CAN NOT BE ENTIRELY EXCLUDED. Signed out by: Eriberto Lyles MD, Pathologist NPI- [id number] Performed by: Marilou Delarosa, Print Color Operator ([facility]) Gross description: 01 35ML, CLOUDY YELLOW, 1 TP 1CB /LCS 03/02/2021 0342 Local FLAG LEGEND: L-Low Normal,H-High Normal,LL-Alert Low,HH-Alert High <-Panic Low,>-Panic High,A-Abnormal,AA-Critical Abnormal Performed at: [address] [place] [address] Derick Perez MD, [address] [place] [address] [address] [place] [address] Ricardo Lyles MD, Specimen Comment: A courtesy copy of this report has been sent to [phone] Specimen Comment: [phone] Specimen Comment: Report sent to DR. CABRERA / DR MENDIETA Specimen Comment: A duplicate report has been generated due to demographic updates. Performed at: [address], [place], [place] [id number] MD Derick Perez MD Phone: [phone]
--- NOTE | 2021-03-03 14:21 | NUR ---
ICU Rounds: Patient remains on vent (FiO2 30% and peep 5). Failed weaning trial again today. Continued precedex, fent and propofol. Patient to remain through the weekend.
[2021-03-03 17:58] LABS: CALCIUM 8.2 mg/dL (8.5-10.1); CREATININE 0.7 mg/dL (0.6-1.3); POTASSIUM 4.2 mmol/L (3.5-5.1)
[2021-03-04] VITALS (24 sets, daily range): BP systolic 90–122; BP diastolic 46–70
[2021-03-04 03:39] LABS: HEMATOCRIT 25.9 % (37.0-47.0); HEMOGLOBIN 8.3 gm/dL (12.0-15.0); MCH 35.1 pg (26.0-34.0); MCV 109.8 fL (80.0-100.0); MPV 9.8 fl. (7.2-11.1); RBC 2.36 mil/uL (4.20-5.00); RDW-CV 21.9 % (10.5-14.5); WBC 20.9 thou/uL (4.0-11.0)
[2021-03-04 03:54] LABS: ALBUMIN 2.6 g/dL (3.4-5.0); CALCIUM 7.7 mg/dL (8.5-10.1); CREATININE 0.6 mg/dL (0.6-1.3); MAGNESIUM 1.7 mg/dL (1.8-2.4); POTASSIUM 3.9 mmol/L (3.5-5.1); TOTAL BILIRUBIN 1.6 mg/dL (<0.1-1.0); TOTAL PROTEIN 4.7 g/dL (6.4-8.2)
[2021-03-04 16:28] LABS: URINE BILIRUBIN NEGATIVE (Negative); URINE BLOOD NEGATIVE (Negative); URINE CLARITY CLOUDY; URINE COLOR YELLOW; URINE GLUCOSE-RANDOM NEGATIVE (Negative); URINE KETONES NEGATIVE (Negative); URINE LEUKOCYTES-REFLEX TRACE (Negative); URINE NITRITE-REFLEX NEGATIVE (Negative); URINE PROTEIN NEGATIVE (Negative); URINE SPECIFIC GRAVITY 1.015 (1.005-1.030); URINE UROBILINOGEN 0.2 E.U./dl (0.2-1.0)
[2021-03-04 16:34] LABS: HYALINE CASTS 0-3 Few /LPF (None Seen); MUCUS None Seen strn/LPF (None Seen); SQUAMOUS NONE SEEN /LPF (0-3); URINE WBC-REFLEX 0-5 Rare /HPF (0-5); YEAST-REFLEX Present (None Seen)
[2021-03-04 16:35] LABS: BACTERIA-REFLEX None Seen /HPF (None Seen); CRYSTALS None Seen /LPF (None Seen); URINE RBC None Seen /HPF (0-2)
[2021-03-05] VITALS (43 sets, daily range): BP systolic 89–143; BP diastolic 44–96
[2021-03-05 06:12] LABS: HEMATOCRIT 25.8 % (37.0-47.0); HEMOGLOBIN 8.4 gm/dL (12.0-15.0); MCH 35.5 pg (26.0-34.0); MCHC 32.6 g/dL (28.0-37.0); MCV 108.7 fL (80.0-100.0); MPV 9.5 fl. (7.2-11.1); RBC 2.37 mil/uL (4.20-5.00); RDW-CV 21.6 % (10.5-14.5); WBC 20.7 thou/uL (4.0-11.0)
[2021-03-05 06:19] LABS: CALCIUM 7.7 mg/dL (8.5-10.1); CREATININE 0.5 mg/dL (0.6-1.3); POTASSIUM 3.3 mmol/L (3.5-5.1)
[2021-03-05 10:56] LABS: BE 0.3 mmol/L (-2 to +3); PCO2 36.1 mmHg (35.0-45.0); PO2 83.6 mmHg (75.0-100.0); pH 7.443 (7.340-7.450)
--- NOTE | 2021-03-05 19:36 | NUR ---
PT EXTUBATED AT 1100, EXTUBATION UNEVENTFUL. SON UPDATED AND HE VISITED HER BRIEFLY. CURRENTLY ON HFNC AT 8L/MIN, TOLERATING WELL. ENCOURAGED COUGHING UP THE SECRETIONS. VSS. WOUND ON THE RT THIGH LOOKS INFLAMMED AND INFECTED, PROIVDERS NOTIFIED AND AWARE. DRESSED PER ORDERS. BAUER'S CATH DRAINED ONLY AFTER IRRIGATION. Q2 TURNS AND ORAL CARE GIVEN.
[2021-03-06] VITALS (50 sets, daily range): BP systolic 88–132; BP diastolic 56–85
--- NOTE | 2021-03-06 00:33 | NUR ---
PT'S HEART RATE 130-150. CALLED DR LUNDEBRG AND RECIEVED ORDERS TO TREAT WITH IV CARDIZEM.
[2021-03-06 12:33] LABS: HEMOGLOBIN 9.3 gm/dL (12.0-15.0); MCV 109.6 fL (80.0-100.0); MPV 8.5 fl. (7.2-11.1); NUCLEATED RBCS 0 /100WBC; RBC 2.64 mil/uL (4.20-5.00); RDW-CV 21.8 % (10.5-14.5); WBC 26.3 thou/uL (4.0-11.0)
[2021-03-06 12:38] LABS: PLATELET COUNT* 364 thou/uL (150-400)
[2021-03-06 12:51] LABS: ALBUMIN 2.6 g/dL (3.4-5.0); CALCIUM 8.1 mg/dL (8.5-10.1); CREATININE 0.4 mg/dL (0.6-1.3); MAGNESIUM 1.4 mg/dL (1.8-2.4); POTASSIUM 3.4 mmol/L (3.5-5.1); TOTAL BILIRUBIN 2.2 mg/dL (<0.1-1.0); TOTAL PROTEIN 5.2 g/dL (6.4-8.2)
[2021-03-06 13:34] LABS: ABSOLUTE LYMPHOCYTES 1.6 thou/uL (0.8-5.3); ABSOLUTE MONOCYTES 1.6 thou/uL (0.0-1.2); ABSOLUTE NEUTROPHILS 23.1 thou/uL (1.6-8.1); PLATELET ESTIMATE ADEQUATE
--- NOTE | 2021-03-06 16:13 | NUR ---
ICU ROUNDS: PT WAS EXTUBATED, CURRENLY ON 8L OF O2. NPO, PT CANNOT SWALLOW. IT IS ANTICIPATED PT WILL NEED REHAB D/T WEAKNESS. PT/OT ORDERED. PT ON CARDIZEM GTT.
--- NOTE | 2021-03-06 16:29 | NUR ---
ASSUMED CARE AT 0700. DILTIAZEM DRIP CONTINUED THROUGH SHIFT. PT SOUNDS COURSE, AND TRYING TO COUGH UP SECRETIONS BUT TOO WEAK TO COUGH OUT STILL. SUCTIONED PERIODICALLY TO AID IN REMOVAL OF SECRETIONS. HIGH FALL RISK PRECAUTIONS IN PLACE FOR PT SAFETY; CARDIAC MONITORING IN PLACE; CONTINUING TO CLOSELY MONITIOR PATIENT AND TO WORK TOWARDS GOALS.
[2021-03-06 22:45] LABS: CALCIUM 8.1 mg/dL (8.5-10.1); CREATININE 0.4 mg/dL (0.6-1.3); MAGNESIUM 1.9 mg/dL (1.8-2.4); POTASSIUM 4.3 mmol/L (3.5-5.1)
[2021-03-07] VITALS (45 sets, daily range): BP systolic 88–115; BP diastolic 51–80
--- NOTE | 2021-03-07 04:33 | NUR ---
ASSUMED CARE AT 1900H, ON BIPAP AT 50% AND TOLERATED. PT WAS CONFUSED BUT OBEYED COMMANDS. ON CARDIZEM DRIP MAINTAINED AT 5MG/HR. NOTED WITH APNEA EPISODE. LAB RESULT INFORMED PULMO WITH ORDERS MADE AND CARRIED OUT. NO FEVER NOTED. PT HAD 1 EPISODE OF SEIZURE ARROUND 0200H, PULMO AWARE AND TO MONITOR SEIZURE ACTIVITY. CONTINUE MONITORING AND TOWARDS GOALS. LASIX AT 10MG/HR AND NO HYPOTENSION NOTED.
[2021-03-07 07:03] LABS: HEMATOCRIT 26.7 % (37.0-47.0); HEMOGLOBIN 8.6 gm/dL (12.0-15.0); MCH 35.1 pg (26.0-34.0); MCHC 32.1 g/dL (28.0-37.0); MCV 109.2 fL (80.0-100.0); MPV 8.5 fl. (7.2-11.1); RBC 2.44 mil/uL (4.20-5.00); RDW-CV 21.8 % (10.5-14.5); WBC 24.9 thou/uL (4.0-11.0)
[2021-03-07 07:09] LABS: CREATININE 0.5 mg/dL (0.6-1.3); POTASSIUM 3.9 mmol/L (3.5-5.1)
--- NOTE | 2021-03-07 09:31 | NUR ---
WOUND NURSE: PATIENT SEEN FOR FOLLOW UP ASSESSMENT PERTAINING TO RIGHT THIGH WOUND. NOW PRESENTS WITH CREAM COLORED ESCHAR MEASURING 8.0 X 9.0 CM. APPEARS FIRMLY ADHERED, BUT MOIST AND LEATHERY. PERIWOUND IS REDDENED. IS PAINFUL TO TOUCH. CLEANSED WITH WOUND CLEANSER AND GAUZE. APPLIED OPTIFOAM GENTLE AG TO WOUND BED. SPOKE WITH DR. CROWDER AND PATIENT APPROVED FOR SURGERY CONSULT WITH DR. PELAYO WHO WAS NOTIFIED BY ME. PATIENT NOT TEACHEABLE AT THIS TIME.
--- NOTE | 2021-03-07 15:21 | NUR ---
WOUND NURSE: PATIENT SEEN BY SURGERY CONSULT AND WOUND DEBRIDED ON RIGHT ANTERIOR THIGH. CONSENT COMPLETED, DEBRIDEMENT FORM FILLED OUT, POST DEBRIDEMENT PICTURE TO BE DONE WITH NEXT DRESSING CHANGE TONIGHT. BONILLA TO RELAY TO CEMENT FINISHING SUPERVISOR IN REPORT.
--- NOTE | 2021-03-07 17:12 | NUR ---
Case and plan of care reviewed with MD each weekday during patient's length of stay. Continue plan of care per MD orders for current dx. Remained off vent, on HHF 8L IF Cardizem gtt, PT/OT on hold due to heart rhythm issues per Cardiology,may resume later today.
[2021-03-07 17:34] LABS: CALCIUM 8.3 mg/dL (8.5-10.1); CREATININE 0.4 mg/dL (0.6-1.3); MAGNESIUM 1.7 mg/dL (1.8-2.4); PHOSPHORUS* 3.5 mg/dL (2.5-4.9); POTASSIUM 4.1 mmol/L (3.5-5.1)
[2021-03-08] VITALS (46 sets, daily range): BP systolic 96–119; BP diastolic 36–83
--- NOTE | 2021-03-08 04:12 | NUR ---
ASSUMED CARE AT 1900H, ON HIFLOW AT 8LPM AND TOLERATED. PT STILL CONFUSED. WITH EPISODE OF TACHYPNEA AND APNEA. PT BACK ON BIPAP. PT COMPLAINED OF GENERALIZED SORENESS AND BACK PAIN, HIMS INFORMED WITH ORDER CARRIED OUT. PT DID WELL ON BIPAP. NO FEVER NOTED. CONTINUE MONITORING AND TOWARDS GOALS. CARDIZEM AT 10MG/HR AND LASIX AT 10MG/HR.
[2021-03-08 06:11] LABS: HEMATOCRIT 24.4 % (37.0-47.0); HEMOGLOBIN 7.8 gm/dL (12.0-15.0); MCH 34.5 pg (26.0-34.0); MCV 107.9 fL (80.0-100.0); MPV 8.3 fl. (7.2-11.1); RBC 2.26 mil/uL (4.20-5.00); RDW-CV 21.6 % (10.5-14.5); WBC 22.2 thou/uL (4.0-11.0)
[2021-03-08 06:24] LABS: CALCIUM 8.1 mg/dL (8.5-10.1); CREATININE 0.5 mg/dL (0.6-1.3); POTASSIUM 3.8 mmol/L (3.5-5.1)
--- NOTE | 2021-03-08 08:48 | NUR ---
Case and plan of care reviewed with MD each weekday during patient's length of stay. Continue plan of care per MD orders for current dx. OR consult for possible I&D leg need. IV gtt Kimberly oneill. extubated vent 03/06/21 Will continue to follow for discharge planning needs
[2021-03-08 18:05] LABS: CALCIUM 8.5 mg/dL (8.5-10.1); CREATININE 0.5 mg/dL (0.6-1.3); MAGNESIUM 2.1 mg/dL (1.8-2.4); POTASSIUM 4.5 mmol/L (3.5-5.1)
--- NOTE | 2021-03-08 19:00 | NUR ---
ASSUMED CARE OF PT 0700. PT MAINTAINED OXYGEN SATURATION ON NASAL CANNULA THROUGHOUGHT SHIFT. PT REMAINS WITH CONGESTED COUGH, PT ENCOURAGED TO COUGH TO CLEAR SECRETIONS. 40MEQ REPLACED PER PROVIDER ORDER, RECHECK SENT. PT REMAINS ON LASIX AND CARDIZEM GTTS. HIGH FALL RISK PRECAUTIONS IN PLACE. PLAN TO START TPN TONIGHT.
--- NOTE | 2021-03-08 23:19 | NUR ---
PT REMOVING OXYGEN CONTINUOUSLY. PT ATTEMPTING TO PULL OUT CENTRAL LINE. PT PLACED IN BILATERAL SOFT WRIST RESTRAINTS MO DR RICK HARVEY.
[2021-03-09] VITALS (49 sets, daily range): BP systolic 94–116; BP diastolic 47–77
[2021-03-09 06:12] LABS: HEMATOCRIT 22.8 % (37.0-47.0); HEMOGLOBIN 7.1 gm/dL (12.0-15.0); MCH 33.9 pg (26.0-34.0); MCHC 31.1 g/dL (28.0-37.0); MCV 108.9 fL (80.0-100.0); MPV 8.5 fl. (7.2-11.1); NUCLEATED RBCS 0 /100WBC; PLATELET COUNT* 283 thou/uL (150-400); RBC 2.09 mil/uL (4.20-5.00); RDW-CV 21.2 % (10.5-14.5); WBC 21.5 thou/uL (4.0-11.0)
[2021-03-09 06:29] LABS: CALCIUM 8.7 mg/dL (8.5-10.1); CREATININE 0.5 mg/dL (0.6-1.3); MAGNESIUM 1.8 mg/dL (1.8-2.4); PHOSPHORUS* 3.4 mg/dL (2.5-4.9); POTASSIUM 4.2 mmol/L (3.5-5.1); TOTAL BILIRUBIN 2.5 mg/dL (<0.1-1.0); TOTAL PROTEIN 5.9 g/dL (6.4-8.2)
[2021-03-09 07:01] LABS: ABSOLUTE LYMPHOCYTES 1.9 thou/uL (0.8-5.3); ABSOLUTE MONOCYTES 0.2 thou/uL (0.0-1.2); ABSOLUTE NEUTROPHILS 19.4 thou/uL (1.6-8.1); ATYPICAL LYMPHS 2 %
[2021-03-09 07:02] LABS: ANISOCYTOSIS 1+; MACROCYTES 1+; PLATELET ESTIMATE ADEQUATE
[2021-03-09 13:30] LABS: HEMATOCRIT 23.8 % (37.0-47.0); HEMOGLOBIN 7.6 gm/dL (12.0-15.0)
[2021-03-09 13:42] LABS: INR 1.1; PROTIME 11.4 Seconds (9.20-11.50)
[2021-03-09 15:53] LABS: BF RBC <1000 /mm3; TOTAL CELL COUNT 132 /mm3
[2021-03-09 15:54] LABS: TOTAL VOLUME 1110 ml
[2021-03-09 15:55] LABS: CLARITY CLEAR
--- NOTE | 2021-03-09 16:05 | NUR ---
Case and plan of care reviewed with MD each weekday during patient's length of stay. Continue plan of care per MD orders for current dx. Pt transitioned from Bipap to HF O2, Remains on Lasix and Cardizem gtt. PT/OT following. Insurance request LTAC referral. Dr Palm approved. Spoke to son as pt was sleeping when went to her room. Son, , discussed possible LTAC need, what LTAC was compared to just acute hospital. He is in agreement with whatever his mom needs. He was just released from the hospital after foot surgery and is unable to drive for a while, concerned about the distance mom is from home, which is about 50 miles currently. Referrals faxed and spoke to Admission team for: Loco Blackwell [phone] Fx [phone] [facility] [phone] Fx [phone]
[2021-03-09 16:46] LABS: SOURCE PLEURAL FLUID
[2021-03-09 17:10] LABS: BF LYMPHOCYTES 33 %; BF MONOCYTES 14 %; BF POLYS 53 %; BF TISSUE 21 /100 WBC
[2021-03-09 17:34] LABS: CALCIUM 8.6 mg/dL (8.5-10.1); CREATININE 0.6 mg/dL (0.6-1.3)
--- NOTE | 2021-03-09 18:36 | NUR ---
ASSUMED CARE AT 0700. HIGH FALL RISK PRECAUTIONS IN PLACE. CARDIAC MONITORING N PLACE. CURRENTLY ON 6L HF. PT ORIENTED TO PERSON, OTHERWISE CONFUSED. ON LASIX AND CARDIZEM DRIPS. PT STILL SOUNDS VERY COARSE.
[2021-03-09 22:08] LABS: PCO2 44.5 mmHg (35.0-45.0); PO2 73.3 mmHg (75.0-100.0); pH 7.455 (7.340-7.450)
--- NOTE | 2021-03-09 23:35 | NUR ---
PT PLACED ON BIPAP AT 2130 FOR LOW O2 SAT. RESTRAINTS DISCONTINUED AT THAT TIME. ABG'S AND STAT PORTABLE CHEST XRAY OBTAINED, RESULTS REPORTED TO DR CARDENAS.
[2021-03-10] VITALS (27 sets, daily range): BP systolic 84–122; BP diastolic 41–81
--- NOTE | 2021-03-10 04:43 | NUR ---
ASSUMED CARE ARROUND 0200H, ON BIPAP AT 65% AND TOLERATED. WITH EPISODE OF TACHYPNIA. STILL CONFUSED AND REMOVING HER BIPAP MASK. PRECEDEC DRIP STARTED. NO FEVER NOTED. CONTINUE MONITORING AND TOWARDS GOALS. PRECEDEX AT .8MICS
[2021-03-10 06:02] LABS: ABSOLUTE BASOPHILS 0.1 thou/uL (0.0-0.2); ABSOLUTE LYMPHOCYTES 0.9 thou/uL (0.8-5.3); ABSOLUTE MONOCYTES 0.7 thou/uL (0.0-1.2); ABSOLUTE NEUTROPHILS 23.1 thou/uL (1.6-8.1); BASOPHILS 0.3 %; HEMATOCRIT 21.7 % (37.0-47.0); HEMOGLOBIN 7.1 gm/dL (12.0-15.0); LYMPHOCYTES 3.5 %; MCH 35.2 pg (26.0-34.0); MCHC 32.7 g/dL (28.0-37.0); MCV 107.8 fL (80.0-100.0); MONOCYTES 2.9 %; MPV 8.8 fl. (7.2-11.1); NUCLEATED RBCS 0 /100WBC; PHOSPHORUS* 4.5 mg/dL (2.5-4.9); PLATELET COUNT* 252 thou/uL (150-400); POLYS 93.3 %; RBC 2.01 mil/uL (4.20-5.00); RDW-CV 20.6 % (10.5-14.5); WBC 24.7 thou/uL (4.0-11.0)
[2021-03-10 06:07] LABS: ALBUMIN 3.5 g/dL (3.4-5.0); CALCIUM 8.7 mg/dL (8.5-10.1); CREATININE 0.6 mg/dL (0.6-1.3); POTASSIUM 3.9 mmol/L (3.5-5.1); TOTAL BILIRUBIN 1.6 mg/dL (<0.1-1.0); TOTAL PROTEIN 5.7 g/dL (6.4-8.2)
--- NOTE | 2021-03-10 08:45 | NUR ---
Case and plan of care reviewed with MD each weekday during patient's length of stay. Continue plan of care per MD orders for current dx. On Bipap 50L Thoracentesis 03/09 IV nino and shruthi sylvester CM Will continue to follow for DC planning needs. LTAC referrals sent out 03/09/21 [facility].
--- NOTE | 2021-03-10 12:11 | NUR ---
Nutrition: Per nsg, time for another swallow trial. RD to follow up on results and POC Saturday.
[2021-03-10 12:50] LABS: MCH 34.5 pg (26.0-34.0); MCHC 32.1 g/dL (28.0-37.0); MCV 107.6 fL (80.0-100.0); MPV 9.1 fl. (7.2-11.1); NUCLEATED RBCS 0 /100WBC; PLATELET COUNT* 252 thou/uL (150-400); RBC 2.04 mil/uL (4.20-5.00); WBC 23.1 thou/uL (4.0-11.0)
[2021-03-10 13:03] LABS: PROTIME 10.8 Seconds (9.20-11.50)
[2021-03-10 13:08] LABS: CALCIUM 8.7 mg/dL (8.5-10.1); CREATININE 0.5 mg/dL (0.6-1.3); POTASSIUM 3.8 mmol/L (3.5-5.1)
[2021-03-10 13:17] LABS: ABSOLUTE LYMPHOCYTES 1.8 thou/uL (0.8-5.3); ABSOLUTE MONOCYTES 0.2 thou/uL (0.0-1.2); PLATELET ESTIMATE ADEQUATE
[2021-03-10 13:18] LABS: ANISOCYTOSIS 1+; HYPOCHROMASIA 1+; MACROCYTES 1+; POIKILOCYTOSIS 1+
--- NOTE | 2021-03-10 13:50 | NUR ---
PT TRANSFERRING TO ROOM 218. PT FAILED SWALLOW DURING MY SHIFT WITH HER. REMAINS ON CARDIZEM AND LASIX DRIPS, NO LONGER ON PRESIDEX. WEAK COUGH. HAS TO HAVE DEEP SUCTION WHEN SHE CAN'T CLEAR SECRETIONS.
--- NOTE | 2021-03-10 15:31 | NUR ---
The patient was transferred to [facility]. This nurse agrees with previous nurse assessment.
--- NOTE | 2021-03-10 18:03 | NUR ---
The patient is alert x1. Denies pain. Dressing to right thigh completed.
[2021-03-11 00:15] VITALS: BP 123/86
--- NOTE | 2021-03-11 04:34 | NUR ---
PT ALERT ORIENTED TO SELF AND PLACE. TURNING Q 2 HRS. ONE UNIT PRBCS INFUSED THIS SHIFT. LASIX QTT DC'D PER ORDER. CARDIZEM QTT INFUSING AT 5MG/HR. FLEXASEAL IN PLACE. BAUER WITH CLEAR YELLOW. BREATH SOUNDS COURSE. ORDER FOR PAPER SAMPLE CLERK SXN OBTAINED. O2 AT 4 LITERS NC. SIDE LASTER TRACING SR.
[2021-03-11 05:05] LABS: HEMATOCRIT 27.6 % (37.0-47.0)
[2021-03-11 05:23] LABS: HEMOGLOBIN 9.1 gm/dL (12.0-15.0)
[2021-03-11 05:51] VITALS: BP 106/67
[2021-03-11 08:23] VITALS: BP 119/74
[2021-03-11 12:00] VITALS: BP 125/70
--- NOTE | 2021-03-11 17:33 | NUR ---
ASSUMED PT CARE AT 0730. PT IS ALERT TO SELF AND OFTEN MUMBLING TO SELF. PT ASSITED WITH REPOSITIONONG Q2H.SAFETY MEASURES IN PLACE. TPN INFUSING. QUETA MATTHEWS DC'Dana PT IN SR 80-90'S. BAUER IS PATENT AND DRAINING DARK YELLOW URINE. RECTAL TUBE PATENT. TX DONE TO R UPPER INNER THIGH ORDERED. PT IS NPO BUT TAKES PO MEDS WITH A SIP OF WATER WITHOUT DIFFICULTY.COMPRESSION BOOTS ON BILAT. PT DENIES PAIN. PT NPO. MEDICATIONS ADMINISTERED ORDERED.
[2021-03-11 17:56] VITALS: BP 129/77
[2021-03-11 19:07] LABS: BODY FLUID PROTEIN 1.4 g/dL (())
[2021-03-11 20:00] VITALS: BP 141/87
[2021-03-12] VITALS (7 sets, daily range): BP systolic 108–132; BP diastolic 66–83
--- NOTE | 2021-03-12 02:41 | NUR ---
PT ALERT ORIENTED TO SELF AND PLACE. PT HAVING VISUAL HALLUCINATIONS. TURN Q 2 HRS. DRSG CHG TO RIGHT INNER THIGH COMPLETE AT HS. UNIFORM ATTENDANT TRACING SR. NO NEED FOR CONDUCTOR ROAD FREIGHT SXN THIS SHIFT. TPN INFUSING TO REJ.
[2021-03-12 04:16] LABS: ABSOLUTE BASOPHILS 0.1 thou/uL (0.0-0.2); ABSOLUTE LYMPHOCYTES 1.1 thou/uL (0.8-5.3); ABSOLUTE MONOCYTES 0.6 thou/uL (0.0-1.2); ABSOLUTE NEUTROPHILS 19.7 thou/uL (1.6-8.1); BASOPHILS 0.3 %; EOSINOPHILS 0.1 %; HEMATOCRIT 30.2 % (37.0-47.0); HEMOGLOBIN 9.8 gm/dL (12.0-15.0); LYMPHOCYTES 5.1 %; MCH 33.2 pg (26.0-34.0); MCHC 32.4 g/dL (28.0-37.0); MONOCYTES 2.7 %; NUCLEATED RBCS 0 /100WBC; PLATELET COUNT* 253 thou/uL (150-400); POLYS 91.8 %; RBC 2.95 mil/uL (4.20-5.00); RDW-CV 23.1 % (10.5-14.5); WBC 21.5 thou/uL (4.0-11.0)
[2021-03-12 04:19] LABS: MCV 102.2 fL (80.0-100.0)
[2021-03-12 04:22] LABS: PROTIME 10.5 Seconds (9.20-11.50)
[2021-03-12 04:27] LABS: ALBUMIN 3.3 g/dL (3.4-5.0); CREATININE 0.4 mg/dL (0.6-1.3); POTASSIUM 3.7 mmol/L (3.5-5.1); TOTAL BILIRUBIN 1.2 mg/dL (<0.1-1.0); TOTAL PROTEIN 6.1 g/dL (6.4-8.2)
[2021-03-12 05:23] LABS: ESR (SEDRATE) 21 mm/hr (0-30)
[2021-03-12 06:04] LABS: % SATURATION 32 % (20-39); IRON 50 ug/dL (50-175)
--- NOTE | 2021-03-12 15:24 | EKG ---
[place] [address] ELECTROCARDIOGRAM REPORT Name: GELY HERNDON Room: [address] IN .R.#: [id number] Admission: 02/15/21 Attend Phys: Shiraz Russ, Discharge: Date of : 67 Date of Service: 03/11/21 1342 Report #: [id number] THIS REPORT FOR: //name// [facility] Test Date: 2021-03-11 Test Time: 13:42:56 Pat Name: GELY HERNDON Department: Room: [address] Gender: F Mitigation Supervisor: : 1965 Requested By: Vick Palm Order Number: [id number] Reading MD: Rakesh Grady Measurements Intervals [place] Rate: 81 P: 8 WI: 200 QRS: 23 QRSD: 83 T: 159 QT: 456 QTc: 530 Interpretive Statements Sinus rhythm Probable left atrial enlargement Abnrm T, consider ischemia, anterolateral lds Prolonged QT interval Compared to ECG 03/01/2021 13:27:01 Possible ischemia now present Prolonged QT interval now present Poor R-wave progression no longer present Electronically Signed On 03-12-2021 15:24:44 CDT by Rakesh Grady [email or web address] <ELECTRONICALLY SIGNED> By: Rakesh Grady MD, [facility] 03/12/21 1524 1342 1342 Rakesh Grady MD, [facility] /EPI
--- NOTE | 2021-03-12 20:27 | NUR ---
ASSUMED PT CARE AT 0730. PT IS ALERT WITH PERIODS OF FORGETFULNESS. PT OFTEN ASK TO GET UP AND WALK TO THE BATHROOM. PT REMINDED OF BAUER WHICH IS PATENT AND DRAINING LIGHT YELLOW URINE.FECAL BAG IS DRAINING DARK BROWN STOOL.PT DENIES ANY PAIN. DRESSING CHANGE TO RIGHT UPPER THIGH COMPLETED. BILAT COMPRESSION BOOTS ON LE. ASSESSMENT COMPLETED AND MEDICATIONS ADMINISTERED ORDERED. O2 NOW AT 2L AND PT IS MAINTAINING SATS IN UPPER 90'S.
[2021-03-13 02:04] VITALS: BP 112/60
--- NOTE | 2021-03-13 04:04 | NUR ---
PT ALERT ORIENTED X3. TURNING Q 2 HRS. RIGHT INNER THIGH DRSG CHGD SCHEDULED WITH EMAR. TEST PREPARATION TUTOR TRACING SR. BAUER TO DD DRAINING YELLOW. FLEX A SEAL DRAINING LIQUID BROWN. BREATH SOUNDS COURSE. WEAK NONPRODUCTIVE LOOSE COUGH. O2 AT 2 LITERS NC.
[2021-03-13 06:01] VITALS: BP 110/65
[2021-03-13 09:00] VITALS: BP 124/75
[2021-03-13 11:30] VITALS: BP 110/71
--- NOTE | 2021-03-13 14:53 | NUR ---
CM DISCUSSED SNF OPTIONS WITH PT. CM FAXED REFERRAL TO [facility]. PT/OT EVALS NEEDED. PT TO CONT ON TPN. PER DR FRAZIER PT WILL NEED TO INCREASE FOOD INTAKE BEFORE SHE CAN D/C TO SNF.
--- NOTE | 2021-03-13 15:27 | NUR ---
I AM IN AGREEMENT WITH DOCUMENTATION BY TARAH GABRIEL, LITZYT
[2021-03-13 16:00] VITALS: BP 83/47
[2021-03-13 17:06] LABS: HEPATITIS B SURFACE AG Negative (Negative)
[2021-03-13 18:33] LABS: ABSOLUTE BASOPHILS 0.1 thou/uL (0.0-0.2); ABSOLUTE EOSINOPHILS 0.3 thou/uL (0.0-0.7); ABSOLUTE LYMPHOCYTES 1.1 thou/uL (0.8-5.3); ABSOLUTE MONOCYTES 1.3 thou/uL (0.0-1.2); BASOPHILS 0.3 %; EOSINOPHILS 1.2 %; HEMATOCRIT 28.5 % (37.0-47.0); HEMOGLOBIN 9.1 gm/dL (12.0-15.0); LYMPHOCYTES 5.3 %; MCH 33.3 pg (26.0-34.0); MCHC 31.7 g/dL (28.0-37.0); MCV 104.8 fL (80.0-100.0); MONOCYTES 5.8 %; MPV 8.9 fl. (7.2-11.1); NUCLEATED RBCS 0 /100WBC; PLATELET COUNT* 214 thou/uL (150-400); POLYS 87.4 %; RBC 2.72 mil/uL (4.20-5.00); RDW-CV 22.4 % (10.5-14.5); WBC 21.7 thou/uL (4.0-11.0)
[2021-03-13 18:53] LABS: ALBUMIN 3.2 g/dL (3.4-5.0); CREATININE 0.5 mg/dL (0.6-1.3); POTASSIUM 4.5 mmol/L (3.5-5.1); TOTAL PROTEIN 6.2 g/dL (6.4-8.2)
[2021-03-13 19:30] VITALS: BP 109/72
[2021-03-13 20:45] LABS: APTT 21.9 Seconds (25.0-31.3); PROTIME 10.3 Seconds (9.20-11.50)
[2021-03-14 00:24] VITALS: BP 116/70
[2021-03-14 04:24] VITALS: BP 109/67
--- NOTE | 2021-03-14 07:00 | NUR ---
ASSUMED CARE OF PATIENT AT 0100. AGREE WITH PRIOR NURSE ASSESSMENT EXCEPT CHARTED. ALERT AND ORIENTED WITH PERIODS OF CONFUSION AT TIMES. LUNGS SOUND COARSE AND DIMINSHED. BAUER CATHETER PATENT WITH SLIGHTLY CLOUDY YELLOW URINE. DR NOTIFIED OF LOW URINE OUTPUT. UNSURE IF LEAKING DUE TO HAD TO PAD FROM WHERE RECTAL TUBE WAS LEAKING. REMAINS ON HEART MONITOR, ON NONREBREATHER MASK THAT PATIENT HAS TO BE REMINDED FREQUENTLY TO KEEP ON. TPN RUNNING WITHOUT DIFFICULTY. TURNED EVERY 2 HOURS DRESSING CHANGED TO RIGHT THIGH. HEELS KEEP UP OFF OF BED.
--- NOTE | 2021-03-14 09:59 | NUR ---
Called and left Vm with Brenda/[facility] [phone] requesting update on pending admission review from 03/09/21 as we have had no communication back from [facility].
[2021-03-14 12:00] VITALS: BP 118/73
--- NOTE | 2021-03-14 15:17 | NUR ---
Recvd secondary contact info for [facility]- Brenda [phone] called and left voicemail. Call back recvd from Brenda request clinicals info to be faxed to [phone] for her to review for admission need to [facility].
--- NOTE | 2021-03-14 15:20 | NUR ---
POC UPDATED: PT TO REMAIN HOSPTIALIZED D/T O2 NEEDS INCREASING TO 15L WITH NRB MASK. SENT UPDATED CLINICALS TO [facility], [phone].
[2021-03-14 16:00] VITALS: BP 115/68
--- NOTE | 2021-03-14 16:26 | NUR ---
WOUND NURSE: SPOKE WITH DR. PELAYO AND SHE WANTS PATIENT TO HAVE WOUND CARE WTIH [facility] HONEY. BACTROBAN WAS DISCONTINUED. RUTH'S NURSE, ADDIS MADE AWARE.
[2021-03-14 19:50] VITALS: BP 124/76
[2021-03-15] VITALS: BP 121/75
[2021-03-15 03:35] VITALS: BP 123/76
--- NOTE | 2021-03-15 04:03 | NUR ---
PT A&O X 3-4, FORGETFUL. VSS ON 4L. NPO EXCEPT MEDS. NO C/O PAIN. RECTAL TUBE, PUREWICK IN PLACE. TPN INFUISING ORDERED, ACCUCHECK Q6H. DRESSING TO RT THIGH C/D/I. CALL LIGHT WITHIN REACH. WILL CONTINUE OT MONITOR.
[2021-03-15 05:30] LABS: HEMATOCRIT 28.1 % (37.0-47.0); MCH 33.6 pg (26.0-34.0); MCHC 32.2 g/dL (28.0-37.0); MCV 104.5 fL (80.0-100.0); MPV 9.1 fl. (7.2-11.1); NUCLEATED RBCS 0 /100WBC; PLATELET COUNT* 215 thou/uL (150-400); RBC 2.69 mil/uL (4.20-5.00); WBC 17.8 thou/uL (4.0-11.0)
[2021-03-15 05:53] LABS: ALBUMIN 3.4 g/dL (3.4-5.0); CALCIUM 9.3 mg/dL (8.5-10.1); CREATININE 0.5 mg/dL (0.6-1.3); MAGNESIUM 2.1 mg/dL (1.8-2.4); POTASSIUM 4.6 mmol/L (3.5-5.1); TOTAL PROTEIN 6.7 g/dL (6.4-8.2)
[2021-03-15 07:47] LABS: ABSOLUTE EOSINOPHILS 0.2 thou/uL (0.0-0.7); ABSOLUTE LYMPHOCYTES 1.6 thou/uL (0.8-5.3); ABSOLUTE MONOCYTES 0.5 thou/uL (0.0-1.2); ABSOLUTE NEUTROPHILS 15.5 thou/uL (1.6-8.1); MACROCYTES 1+; PLATELET ESTIMATE ADEQUATE
[2021-03-15 08:00] VITALS: BP 98/62
[2021-03-15 12:00] VITALS: BP 93/62
--- NOTE | 2021-03-15 14:01 | NUR ---
Case and plan of care reviewed with MD each weekday during patient's length of stay. Continue plan of care per MD orders for current dx. Received CB from [facility], they have accepted and requested Auth from [facility]. Resp status improved, decreased to 4L nc from 15L NRB 03/14. CM will continue to follow for discharge assistance needs
[2021-03-15 20:12] VITALS: BP 106/70
[2021-03-16] VITALS: BP 127/83
[2021-03-16 04:02] VITALS: BP 108/66
[2021-03-16 05:09] LABS: HEMATOCRIT 27.5 % (37.0-47.0); HEMOGLOBIN 8.7 gm/dL (12.0-15.0); MCH 33.2 pg (26.0-34.0); MCHC 31.7 g/dL (28.0-37.0); MCV 104.7 fL (80.0-100.0); MPV 9.5 fl. (7.2-11.1); RBC 2.62 mil/uL (4.20-5.00); RDW-CV 20.4 % (10.5-14.5); WBC 13.8 thou/uL (4.0-11.0)
[2021-03-16 05:40] LABS: ALBUMIN 3.3 g/dL (3.4-5.0); CALCIUM 9.2 mg/dL (8.5-10.1); CREATININE 0.4 mg/dL (0.6-1.3); MAGNESIUM 1.8 mg/dL (1.8-2.4); POTASSIUM 4.5 mmol/L (3.5-5.1); TOTAL PROTEIN 6.7 g/dL (6.4-8.2)
--- NOTE | 2021-03-16 05:53 | NUR ---
PATIENT SLEPT PART OF THE NIGHT. PATIENT IS NOW OFF TPN. RIJ REMAINS SALINE LOCKED. FECAL TUBE REMAINS IN PLACE. DRESSING TO RIGHT THIGH WAS CHANGED AND REMAINS INTACT. PATIENT IS SCHEDULED FOR AN MRI AND SWALLOW STUDY TODAY. WILL CONTINUE TO MONITOR.
[2021-03-16 08:00] VITALS: BP 106/63
--- NOTE | 2021-03-16 09:12 | NUR ---
KATHARINA Gutierrez[facility] submitted for auth, [facility] will not approve until [facility] can guarantee admission in next 24 hours. [facility] has not scheduled dc until 03/17, Brenda stated would resubmit today, request updated clinicals last 48hrs to be faxed to [phone]. This was done.
[2021-03-16 12:00] VITALS: BP 117/65
--- NOTE | 2021-03-16 14:04 | NUR ---
I AM IN AGREEMENT WITH [facility] DOCUMENTATION. RICK GABRIEL, LITZYT
[2021-03-16 16:00] VITALS: BP 108/66
[2021-03-16 19:45] VITALS: BP 118/71
[2021-03-17 00:58] VITALS: BP 104/63
--- NOTE | 2021-03-17 04:15 | NUR ---
PT A&O X 3-4. VSS ON 4L. MEDS GIVEN ORDERED. NO C/O PAIN. DRESSING TO RT THIGH INTACT. PT INCONTINENT OF BOWEL AND BLADDER. TURNED AND CHANGED Q2H. CALL LIGHT WITHIN REACH. WILL CONTINUE TO MONITOR.
[2021-03-17 05:03] VITALS: BP 103/60
[2021-03-17 06:20] LABS: ABSOLUTE BASOPHILS 0.1 thou/uL (0.0-0.2); ABSOLUTE EOSINOPHILS 0.5 thou/uL (0.0-0.7); ABSOLUTE LYMPHOCYTES 1.8 thou/uL (0.8-5.3); ABSOLUTE MONOCYTES 0.7 thou/uL (0.0-1.2); ABSOLUTE NEUTROPHILS 8.7 thou/uL (1.6-8.1); BASOPHILS 0.5 %; EOSINOPHILS 4.2 %; HEMATOCRIT 25.9 % (37.0-47.0); HEMOGLOBIN 8.5 gm/dL (12.0-15.0); LYMPHOCYTES 15.1 %; MCH 33.8 pg (26.0-34.0); MCHC 32.7 g/dL (28.0-37.0); MCV 103.4 fL (80.0-100.0); MONOCYTES 6.1 %; MPV 9.3 fl. (7.2-11.1); NUCLEATED RBCS 0 /100WBC; PLATELET COUNT* 212 thou/uL (150-400); POLYS 74.1 %; RDW-CV 19.8 % (10.5-14.5); WBC 11.7 thou/uL (4.0-11.0)
[2021-03-17 06:27] LABS: ALBUMIN 3.2 g/dL (3.4-5.0); CALCIUM 8.8 mg/dL (8.5-10.1); CREATININE 0.4 mg/dL (0.6-1.3); MAGNESIUM 1.6 mg/dL (1.8-2.4); POTASSIUM 3.6 mmol/L (3.5-5.1); TOTAL BILIRUBIN 0.9 mg/dL (<0.1-1.0); TOTAL PROTEIN 6.4 g/dL (6.4-8.2)
[2021-03-17 08:29] VITALS: BP 97/57
--- NOTE | 2021-03-17 09:37 | NUR ---
Called [facility] [phone] left VM, requesting update on auth initiation status, [facility] refused auth until pt can be guaranteed admission within 24hrs of auth approval. Brenda reports discharges possible today and tomorrow. Case and plan of care reviewed with MD each weekday during patient's length of stay. Continue plan of care per MD orders for current dx. Pt on 4L NC, Rectal tube dc 03/16, pt having BMs x6. CT Abd shows Ileus no SBO. TPN dc 03/17 and puree diet ordered. CM will continue to follow for discharge assistance needs
[2021-03-17 12:00] VITALS: BP 104/62
--- NOTE | 2021-03-17 19:06 | NUR ---
Pt has had multiple BMs, incontinent each time. Lactulose frequency reduced to BID. Pt down to MRI twice today. C/O back pain with first MRI, so order received to premedicate with morphine for 2nd MRI; reports much better tolerance of lying flat after morphine. VSS. R thigh drsg changed multiple times due to repeated soiling with BMs. Mg++ 1.6 this am, replaced per protocol. Will continue to monitor.
[2021-03-17 19:45] VITALS: BP 110/68
[2021-03-18 01:12] VITALS: BP 100/60
--- NOTE | 2021-03-18 04:13 | NUR ---
PT A&O X 4, VSS ON 2L. MEDS GIVEN ORDERED. INCONTINENT AT TIMES. DRESSING TO RT THIGH CHANGED AND C/D/I. CALL LIGHT WITHIN REACH. WILL CONTINUE TO MONITOR.
[2021-03-18 04:37] VITALS: BP 111/68
[2021-03-18 07:30] VITALS: BP 105/67
[2021-03-18 12:00] VITALS: BP 84/54
[2021-03-18 16:00] VITALS: BP 100/63
--- NOTE | 2021-03-18 17:00 | NUR ---
PT REMAINED ALERT AND ORIENTED. PT BP DROPPED THIS SHIFT, FLUIDS GIVEN ORDERED. PHYSICIAN NOTIFIED, NEW ORDERS RECEIVED. Q2 TURNS. ACCU CHECKS. HEART MONITORED. FALL RISK PRECAUTIONS IN PLACE. DRESSING CHANGED. HOURLY ROUNDING COMPLETED. CALL LIGHT WITHIN REACH.
[2021-03-18 20:00] VITALS: BP 102/62
[2021-03-19] VITALS (7 sets, daily range): BP systolic 101–123; BP diastolic 52–73
--- NOTE | 2021-03-19 01:18 | NUR ---
PT ALERT ORIENTED. VOIDS PER BP. TURN Q 2 HRS. R THIGH DRSG DRSG CHD HS. DENIES PAIN. 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 O2 AT 2 LITERS NC.
[2021-03-19 05:32] LABS: HEMATOCRIT 24.3 % (37.0-47.0); HEMOGLOBIN 8.1 gm/dL (12.0-15.0); MCH 34.2 pg (26.0-34.0); MCHC 33.1 g/dL (28.0-37.0); MCV 103.3 fL (80.0-100.0); MPV 9.3 fl. (7.2-11.1); RBC 2.36 mil/uL (4.20-5.00); RDW-CV 19.3 % (10.5-14.5); WBC 10.7 thou/uL (4.0-11.0)
[2021-03-19 06:16] LABS: ALBUMIN 2.8 g/dL (3.4-5.0); CALCIUM 8.6 mg/dL (8.5-10.1); CREATININE 0.4 mg/dL (0.6-1.3); MAGNESIUM 1.5 mg/dL (1.8-2.4); TOTAL BILIRUBIN 0.7 mg/dL (<0.1-1.0); TOTAL PROTEIN 5.9 g/dL (6.4-8.2)
--- NOTE | 2021-03-19 16:13 | NUR ---
PT REMAINED ALERT AND ORIENTED. PT RESTING IN BED AND UP TO SIDE OF BED. DRESSING CHANGED. ENCOURAGED MEALS AND ORDERED SNACKS TO PATIENTS PREFERNECE WITHIN DIET ORDERS. FALL RISK PRECAUTIONS IN PLACE. HOURLY ROUNDING COMPLETED. CALL LIGHT WITHIN REACH.
[2021-03-20 03:47] VITALS: BP 118/63
[2021-03-20 05:22] LABS: ALBUMIN 2.9 g/dL (3.4-5.0); CALCIUM 8.6 mg/dL (8.5-10.1); CREATININE 0.4 mg/dL (0.6-1.3); MAGNESIUM 1.8 mg/dL (1.8-2.4); POTASSIUM 3.8 mmol/L (3.5-5.1); TOTAL BILIRUBIN 0.6 mg/dL (<0.1-1.0)
[2021-03-20 05:24] LABS: HEMATOCRIT 24.7 % (37.0-47.0); HEMOGLOBIN 8.1 gm/dL (12.0-15.0); MCH 33.9 pg (26.0-34.0); MCHC 32.9 g/dL (28.0-37.0); MCV 102.9 fL (80.0-100.0); MPV 8.8 fl. (7.2-11.1); RBC 2.4 mil/uL (4.20-5.00); WBC 9.7 thou/uL (4.0-11.0)
--- NOTE | 2021-03-20 06:13 | NUR ---
PATIENT HAS REMAINED ALERT AND ORIENTED X 4 THIS SHIFT AND RESTING QUIETLY ON HOURLY ROUNDS. TURNED Q2H. WAFFLE CUSHION TO LOW BACK AND TAILBONE. HEELS FLOATING OFF OF BED. DRESSING RIGHT THIGH CHANGED PER ORDER. 2 LOOSE BM'S THIS SHIFT. ONE ON BEDPAN AND ONE INCONT. MAGNESIUM REPLACEMENT IN PROGRESS. VITAL SIGNS STABLE ON ROOM AIR. FALL PRECAUTIONS IN PLACE. CONTINUE TO MONITOR.
[2021-03-20 08:00] VITALS: BP 98/58
[2021-03-20 11:30] VITALS: BP 105/62
--- NOTE | 2021-03-20 14:06 | PATH ---
[address] [address] PATHOLOGY RPT PROCEDURE Name: GELY HERNDON Krishna Room: [address] IN [facility]#: [id number] Admission: 02/15/21 Date of : 67 Discharge: Report #: [id number] Path Case #: [id number] Note [facility] Accession Number: [id number] TESTS RESULT FLAG UNITS REF RANGE LAB Clinician Provided Cytology Information No. of containers..01 Other (Miscellaneous) Source: RIGHT PLEURAL FLUID DIAGNOSIS: 02 RIGHT PLEURAL FLUID NEGATIVE FOR MALIGNANT CELLS. MESOTHELIAL CELLS ARE PRESENT. THIS INTERPRETATION INCLUDES EVALUATION OF A CELL BLOCK. Signed out by: 02 Ricardo Lyles MD, Pathologist NPI- [id number] Performed by: 01 Zulma Gibson, Small Parts Assembler ([facility]) Gross description: 01 30ML, CLEAR YELLOW, 1 TP 1 CB /LCS 03/15/2021 1652 Local FLAG LEGEND: L-Low Normal,H-High Normal,LL-Alert Low,HH-Alert High <-Panic Low,>-Panic High,A-Abnormal,AA-Critical Abnormal Performed at: [address] [place] [address] Derick Perez MD, [address] [place] [address] [facility], [place] [address] Ricardo Lyles MD, Specimen Comment: A duplicate report has been generated due to demographic updates. Performed at: [address], [place], [place] [id number] MD Derick Perez MD Phone: [phone]
--- NOTE | 2021-03-20 15:12 | NUR ---
BRUCE WITH [facility] REQUESTED UPDATED CLINICALS. BRUCE INDICATED AUTH IS PENDING. CM FAXED UPDATED CLINICAL TO [phone].
[2021-03-20 16:00] VITALS: BP 106/71
--- NOTE | 2021-03-20 16:20 | NUR ---
Received call from [facility] facility has auth approval, Can transfer in AM 03/21/21. Gave updated report for today. On O2, No IVs. Notified Dr Parra and VELMA CT.
[2021-03-20 19:50] VITALS: BP 108/69
[2021-03-20 23:58] VITALS: BP 102/53
[2021-03-21 04:14] VITALS: BP 111/59
--- NOTE | 2021-03-21 04:28 | NUR ---
PT A&O X 4. ON 2L. PILLS CRUSHED AND GIVEN WITH APPLE SAUCE. NO C/O PAIN. PT INCONTINENT OF BOWEL, HAD LIQUIDY STOOL SEVERAL TIMES. DRESSING TO RT THIGH SOILED AND CHANGED. CALL LIGHT WITHIN REACH. WILL CONTINUE TO MONITOR.
[2021-03-21 09:04] VITALS: BP 96/55
[2021-03-21] MEDS ORDERED: MUCUS RLF DM E1 EACH PO (10:30)
[2021-03-21] MEDS ORDERED: TESSALON PERLE100 MG PO (10:30)
[2021-03-21] MEDS ORDERED: BROVANA15 MCG/2 M INH (10:30)
[2021-03-21] MEDS ORDERED: XANAX 0.25 MG0.25 MG PO (10:30)
[2021-03-21] MEDS ORDERED: PROTONIX40 M2 PO (10:30)
[2021-03-21] MEDS ORDERED: LEVALBUTER1.25 MG/0. INH (10:30)
[2021-03-21] MEDS ORDERED: SORINE 80 MG TA80 M1 PO (10:30)
[2021-03-21] MEDS ORDERED: CARDIZEM CD120 MG PO (10:30)
[2021-03-21] MEDS ORDERED: FOLIC ACID1 MG PO (10:30)
[2021-03-21] MEDS ORDERED: LACTULOSE20 GM/30 M PO (10:30)
[2021-03-21] MEDS ORDERED: MIDODRINE HCL 55 M1 PO (10:30)
[2021-03-21 12:11] VITALS: BP 113/67
--- NOTE | 2021-03-21 14:17 | NUR ---
CM INFORMED PT AND HER JAZZMINE OF TRANSFER TO LT, [facility] AND PROVIDED PT'S JAZZMINE WITH [facility] PHONE NUMBER AND ADDRESS. RN GIVEN NUMBER TO CALL REPORT [phone]. US MADE CHART COPY. VELMA ARRANGED TRANSPORTATION WITH [facility] FOR 1400, SPK WITH DIANA. PLACED EMTALA FORM ON CHART SIGNED BY DOCTOR.
--- NOTE | 2021-03-21 16:14 | NUR ---
ASSUMED PT CARE AT 0730. PT IS A&OX4 WITH SOME FORGETFULNESS. ASSESSMENT COMPLETED THIS AM AND PT VOICES NO CONCERNS. PT SITTING UP IN BED VISITING WITH A FAMILY MEMBER AT THIS TIME. WOUND CARE COMPLETED TO R UPPER THIGH. MEDICATIONS ADMINISTERED ORDERED. NEW ORDER TO TRANSFER PT TO [facility]. REPORT GIVEN TO LEONCIO. PT INFORMED OF TRANSFER PLAN. [facility] HERE TO TRANSPOERT PT AT [id number]. HEART MONITOR REMOVED. IV LEFT IN PLACE PER FACILITY REQUEST. ALL BELONGINGS WITH PT.
== END 2021-03-21 14:26 | DRG 853 ==
LOC: M.ERS 16:05 → M.ICU 18:27 → M.TBA-ER 18:27 → M.2W 18:27 → M.TBA-ER 02-16 12:02 → M.ICU 02-16 16:58 → M.2W 03-10 15:19
PROVIDERS: Emergency Medicine Emergency Medical Services; Family Medicine; Internal Medicine; Internal Medicine Critical Care Medicine; Internal Medicine Gastroenterology; Pediatrics; Radiology Diagnostic Radiology; ADMIT Internal Medicine; ATTEND Internal Medicine
PROC: 05HY33Z Insertion of Infusion Device into Upper Vein, Percutaneous Approach (ICD-10-PCS; principal; 2021-02-16)
PROC: 5A0935A Assistance with Respiratory Ventilation, Less than 24 Consecutive Hours, High Flow/Velocity Cannula (ICD-10-PCS; 2021-02-17)
PROC: 5A0935A Assistance with Respiratory Ventilation, Less than 24 Consecutive Hours, High Flow/Velocity Cannula (ICD-10-PCS; 2021-02-18)
PROC: 5A0935A Assistance with Respiratory Ventilation, Less than 24 Consecutive Hours, High Flow/Velocity Cannula (ICD-10-PCS; 2021-02-19)
PROC: 5A09357 Assistance with Respiratory Ventilation, Less than 24 Consecutive Hours, Continuous Positive Airway Pressure (ICD-10-PCS; 2021-02-19)
PROC: 5A09457 Assistance with Respiratory Ventilation, 24-96 Consecutive Hours, Continuous Positive Airway Pressure (ICD-10-PCS; 2021-02-21)
PROC: 5A0935A Assistance with Respiratory Ventilation, Less than 24 Consecutive Hours, High Flow/Velocity Cannula (ICD-10-PCS; 2021-02-21)
PROC: 5A1955Z Respiratory Ventilation, Greater than 96 Consecutive Hours (ICD-10-PCS; 2021-02-22)
PROC: B54NZZA Ultrasonography of Left Upper Extremity Veins, Guidance (ICD-10-PCS; 2021-02-22)
PROC: 0BH17EZ Insertion of Endotracheal Airway into Trachea, Via Natural or Artificial Opening (ICD-10-PCS; 2021-02-22)
PROC: B01B1ZZ Fluoroscopy of Spinal Cord using Low Osmolar Contrast (ICD-10-PCS; 2021-02-22)
PROC: 009U3ZX Drainage of Spinal Canal, Percutaneous Approach, Diagnostic (ICD-10-PCS; 2021-02-22)
PROC: 03HY32Z Insertion of Monitoring Device into Upper Artery, Percutaneous Approach (ICD-10-PCS; 2021-02-22)
PROC: 0DBN8ZX Excision of Sigmoid Colon, Via Natural or Artificial Opening Endoscopic, Diagnostic (ICD-10-PCS; 2021-02-23)
PROC: 0DJ08ZZ Inspection of Upper Intestinal Tract, Via Natural or Artificial Opening Endoscopic (ICD-10-PCS; 2021-02-23)
PROC: 0DBM8ZX Excision of Descending Colon, Via Natural or Artificial Opening Endoscopic, Diagnostic (ICD-10-PCS; 2021-02-23)
PROC: 30233N1 Transfusion of Nonautologous Red Blood Cells into Peripheral Vein, Percutaneous Approach (ICD-10-PCS; 2021-02-24)
PROC: 0W9B3ZZ Drainage of Left Pleural Cavity, Percutaneous Approach (ICD-10-PCS; 2021-02-27)
PROC: 0W993ZZ Drainage of Right Pleural Cavity, Percutaneous Approach (ICD-10-PCS; 2021-02-28)
PROC: 5A0935A Assistance with Respiratory Ventilation, Less than 24 Consecutive Hours, High Flow/Velocity Cannula (ICD-10-PCS; 2021-03-05)
PROC: 5A09357 Assistance with Respiratory Ventilation, Less than 24 Consecutive Hours, Continuous Positive Airway Pressure (ICD-10-PCS; 2021-03-06)
PROC: 5A0935A Assistance with Respiratory Ventilation, Less than 24 Consecutive Hours, High Flow/Velocity Cannula (ICD-10-PCS; 2021-03-07)
PROC: 5A09357 Assistance with Respiratory Ventilation, Less than 24 Consecutive Hours, Continuous Positive Airway Pressure (ICD-10-PCS; 2021-03-07)
PROC: 5A0935A Assistance with Respiratory Ventilation, Less than 24 Consecutive Hours, High Flow/Velocity Cannula (ICD-10-PCS; 2021-03-08)
PROC: 5A09357 Assistance with Respiratory Ventilation, Less than 24 Consecutive Hours, Continuous Positive Airway Pressure (ICD-10-PCS; 2021-03-08)
PROC: 5A0935A Assistance with Respiratory Ventilation, Less than 24 Consecutive Hours, High Flow/Velocity Cannula (ICD-10-PCS; 2021-03-09)
PROC: 0W993ZZ Drainage of Right Pleural Cavity, Percutaneous Approach (ICD-10-PCS; 2021-03-09)
PROC: 5A09357 Assistance with Respiratory Ventilation, Less than 24 Consecutive Hours, Continuous Positive Airway Pressure (ICD-10-PCS; 2021-03-10)
PROC: 5A0935A Assistance with Respiratory Ventilation, Less than 24 Consecutive Hours, High Flow/Velocity Cannula (ICD-10-PCS; 2021-03-10)
PROC: 5A0935A Assistance with Respiratory Ventilation, Less than 24 Consecutive Hours, High Flow/Velocity Cannula (ICD-10-PCS; 2021-03-11)
PROC: 5A09357 Assistance with Respiratory Ventilation, Less than 24 Consecutive Hours, Continuous Positive Airway Pressure (ICD-10-PCS; 2021-03-12)
PROC: 5A0935A Assistance with Respiratory Ventilation, Less than 24 Consecutive Hours, High Flow/Velocity Cannula (ICD-10-PCS; 2021-03-12)
PROC: 5A09357 Assistance with Respiratory Ventilation, Less than 24 Consecutive Hours, Continuous Positive Airway Pressure (ICD-10-PCS; 2021-03-13)
PROC: 5A0935A Assistance with Respiratory Ventilation, Less than 24 Consecutive Hours, High Flow/Velocity Cannula (ICD-10-PCS; 2021-03-13)
PROC: 5A0935A Assistance with Respiratory Ventilation, Less than 24 Consecutive Hours, High Flow/Velocity Cannula (ICD-10-PCS; 2021-03-19)
PROC: 0W9G3ZZ Drainage of Peritoneal Cavity, Percutaneous Approach (ICD-10-PCS; 2021-03-20)
PROC: 0JBL0ZZ Excision of Right Upper Leg Subcutaneous Tissue and Fascia, Open Approach (ICD-10-PCS; 2021-03-20)
DX: A41.9 Sepsis, unspecified organism (principal); E43 Unspecified severe protein-calorie malnutrition; J69.0 Pneumonitis due to inhalation of food and vomit; G93.41 Metabolic encephalopathy; R65.21 Severe sepsis with septic shock; K85.90 Acute pancreatitis without necrosis or infection, unspecified; J80 Acute respiratory distress syndrome; D65 Disseminated intravascular coagulation [defibrination syndrome]; S22.080A Wedge compression fracture of T11-T12 vertebra, initial encounter for closed fracture; E87.2 Acidosis; E87.1 Hypo-osmolality and hyponatremia; E87.3 Alkalosis; N39.0 Urinary tract infection, site not specified; A04.72 Enterocolitis due to Clostridium difficile, not specified as recurrent; K76.6 Portal hypertension; I47.2 Ventricular tachycardia; E27.40 Unspecified adrenocortical insufficiency; K92.2 Gastrointestinal hemorrhage, unspecified; J91.8 Pleural effusion in other conditions classified elsewhere; K56.7 Ileus, unspecified; Z68.1 Body mass index [BMI] 19.9 or less, adult; I95.9 Hypotension, unspecified; E88.09 Other disorders of plasma-protein metabolism, not elsewhere classified; E87.6 Hypokalemia; F17.210 Nicotine dependence, cigarettes, uncomplicated; R41.0 Disorientation, unspecified; D53.9 Nutritional anemia, unspecified; K31.89 Other diseases of stomach and duodenum; E83.42 Hypomagnesemia; R13.10 Dysphagia, unspecified; K70.31 Alcoholic cirrhosis of liver with ascites; K70.40 Alcoholic hepatic failure without coma; E11.65 Type 2 diabetes mellitus with hyperglycemia; E11.40 Type 2 diabetes mellitus with diabetic neuropathy, unspecified; I48.0 Paroxysmal atrial fibrillation; S71.101A Unspecified open wound, right thigh, initial encounter; L89.890 Pressure ulcer of other site, unstageable; Z20.822 Contact with and (suspected) exposure to COVID-19; T38.0X5A Adverse effect of glucocorticoids and synthetic analogues, initial encounter; K70.9 Alcoholic liver disease, unspecified; Z90.710 Acquired absence of both cervix and uterus; W18.39XA Other fall on same level, initial encounter; Y93.89 Activity, other specified; Y92.89 Other specified places as the place of occurrence of the external cause; Y99.8 Other external cause status

== ENCOUNTER → 2021-05-16 | Outpatient (CLI) | payer OTHER ==
[~2021-05-16] MED LIST changes: +BROVANA15 MCG/2 M INH; +CARDIZEM CD120 MG PO; +FOLIC ACID1 MG PO; +LACTULOSE20 GM/30 M PO; +LEVALBUTER1.25 MG/0. INH; +MIDODRINE HCL 55 M1 PO; +MUCUS RLF DM E1 EACH PO; +PROTONIX40 M2 PO; +SORINE 80 MG TA80 M1 PO; +TESSALON PERLE100 MG PO; +XANAX 0.25 MG0.25 MG PO
== END ==
LOC: M.WC 09:00
PROVIDERS: ATTEND Emergency Medicine Undersea and Hyperbaric Medicine
DX: T81.89XA Other complications of procedures, not elsewhere classified, initial encounter (principal); L02.415 Cutaneous abscess of right lower limb; E27.1 Primary adrenocortical insufficiency; N18.2 Chronic kidney disease, stage 2 (mild); F10.10 Alcohol abuse, uncomplicated; F41.9 Anxiety disorder, unspecified; F17.200 Nicotine dependence, unspecified, uncomplicated; F32.9 Major depressive disorder, single episode, unspecified; Y92.238 Other place in hospital as the place of occurrence of the external cause; Y83.8 Other surgical procedures as the cause of abnormal reaction of the patient, or of later complication, without mention of misadventure at the time of the procedure

== ENCOUNTER → 2021-05-23 | Outpatient (CLI) | payer OTHER | LOC: M.WC 08:52 | PROVIDERS: ATTEND Emergency Medicine Undersea and Hyperbaric Medicine | DX: T81.89XD Other complications of procedures, not elsewhere classified, subsequent encounter (principal); L02.415 Cutaneous abscess of right lower limb; E27.1 Primary adrenocortical insufficiency; N18.2 Chronic kidney disease, stage 2 (mild); F10.10 Alcohol abuse, uncomplicated; F41.9 Anxiety disorder, unspecified; F17.200 Nicotine dependence, unspecified, uncomplicated; F32.9 Major depressive disorder, single episode, unspecified; Y83.8 Other surgical procedures as the cause of abnormal reaction of the patient, or of later complication, without mention of misadventure at the time of the procedure ==

== ENCOUNTER → 2021-05-30 | Outpatient (CLI) | payer OTHER | LOC: M.WC 08:47 | PROVIDERS: ATTEND Emergency Medicine Undersea and Hyperbaric Medicine | DX: T81.89XD Other complications of procedures, not elsewhere classified, subsequent encounter (principal); L02.415 Cutaneous abscess of right lower limb; E27.1 Primary adrenocortical insufficiency; N18.2 Chronic kidney disease, stage 2 (mild); F41.9 Anxiety disorder, unspecified; F32.9 Major depressive disorder, single episode, unspecified; F17.200 Nicotine dependence, unspecified, uncomplicated; Z79.899 Other long term (current) drug therapy; Y83.8 Other surgical procedures as the cause of abnormal reaction of the patient, or of later complication, without mention of misadventure at the time of the procedure ==

== ENCOUNTER → 2021-06-09 | Outpatient (CLI) | payer OTHER | LOC: M.WC 07:31 | PROVIDERS: ATTEND Family Medicine | DX: T81.89XD Other complications of procedures, not elsewhere classified, subsequent encounter (principal); L02.415 Cutaneous abscess of right lower limb; E27.1 Primary adrenocortical insufficiency; N18.2 Chronic kidney disease, stage 2 (mild); F10.10 Alcohol abuse, uncomplicated; F41.9 Anxiety disorder, unspecified; F32.9 Major depressive disorder, single episode, unspecified; F17.200 Nicotine dependence, unspecified, uncomplicated; Z79.899 Other long term (current) drug therapy; Y83.8 Other surgical procedures as the cause of abnormal reaction of the patient, or of later complication, without mention of misadventure at the time of the procedure ==

== ENCOUNTER → 2021-06-20 | Outpatient (CLI) | payer OTHER | LOC: M.WC 08:31 | PROVIDERS: ATTEND Emergency Medicine Undersea and Hyperbaric Medicine | DX: T81.89XD Other complications of procedures, not elsewhere classified, subsequent encounter (principal); L02.415 Cutaneous abscess of right lower limb; E27.1 Primary adrenocortical insufficiency; N18.2 Chronic kidney disease, stage 2 (mild); F10.10 Alcohol abuse, uncomplicated; F41.9 Anxiety disorder, unspecified; F32.9 Major depressive disorder, single episode, unspecified; F17.200 Nicotine dependence, unspecified, uncomplicated; Y83.8 Other surgical procedures as the cause of abnormal reaction of the patient, or of later complication, without mention of misadventure at the time of the procedure ==

== ENCOUNTER → 2021-06-27 | Outpatient (CLI) | payer OTHER | LOC: M.WC 08:40 | PROVIDERS: ATTEND Emergency Medicine Undersea and Hyperbaric Medicine | DX: T81.89XD Other complications of procedures, not elsewhere classified, subsequent encounter (principal); L02.415 Cutaneous abscess of right lower limb; E27.1 Primary adrenocortical insufficiency; N18.2 Chronic kidney disease, stage 2 (mild); F10.10 Alcohol abuse, uncomplicated; F41.9 Anxiety disorder, unspecified; F32.9 Major depressive disorder, single episode, unspecified; F17.200 Nicotine dependence, unspecified, uncomplicated; Y83.8 Other surgical procedures as the cause of abnormal reaction of the patient, or of later complication, without mention of misadventure at the time of the procedure ==